=== PATIENT | female | born 1985 | race African-American/Black ===

== ENCOUNTER 2023-01-21 23:25 | Inpatient (IN) ==
[2023-01-22] MEDS ORDERED: HYDROmorphone INJ 1 MG/ML SYRINGE IV STA ×3 (00:31→04:48)
[2023-01-22] MEDS ORDERED: ONDANSETRON INJ 2 MG/ML 2 ML VIAL IV STA (00:31)
[2023-01-22] MEDS ORDERED: SODIUM CHLORIDE 0.9% 1000ML 1,000 ML IV ONE (00:31)
--- NOTE | 2023-01-22 00:34 | Emergency Department Note ---
Impression & Plan Sickle cell crisis, Anemia, Elevated bilirubin ED Provider Note NAME: EDWARD MOREJON AGE: 37 SEX: F : 1985 ARRIVES VIA: Walk-In INFORMANT: Patient ED PROVIDER(S): Mukesh Li DO CHIEF COMPLAINT: Sickle cell crisis HPI: Patient is a 37-year-old female who presents to the ER for sickle cell crisis. She has a past medical history of sickle cell disease. She was admitted last week for 5 days and discharged on . She notes on Sunday she started having pain in her arms and legs. Today she started having right- sided chest pain and belly pain associated with nausea. She took 8 mg of Dilaudid this morning and then 4 mg around 4 PM. She notes she still having severe pain. She denies any fevers, dysuria urgency or frequency. No other exacerbating or remitting factors. PAST MEDICAL HISTORY:See Below PAST SURGICAL HISTORY:See Below FAMILY HISTORY:See Below SOCIAL HISTORY:See Below HOME MEDICATIONS:See Below ALLERGIES:See Below VITALS:See Below PHYSICAL EXAMINATION: GENERAL: Sitting up in bed, alert, well appearing, well nourished, no distress, non-toxic EYE EXAM: normal conjunctiva. OROPHARYNX: mucous membranes are moist NECK: supple, no nuchal rigidity, no adenopathy, non-tender LUNGS: Clear to auscultation. Normal chest wall mechanics HEART: no murmurs, S1 normal and S2 normal ABDOMEN: abdomen soft, non-tender, normo-active bowel sounds, no masses, no rebound or guarding. BACK: Back is symmetrical on inspection and there is no deformity, no midline tenderness, no CVA tenderness. UPPER EXTREMITIES: upper extremities are grossly normal. LOWER EXTREMITIES: No pitting edema. NEURO EXAM: Normal sensorium, cranial nerves II-XII grossly intact, normal spe ech, no gross weakness of arms, no gross weakness of legs. No drift. Finger to nose intact. Gross sensation intact. MEDICAL DECISION MAKING: Patient is a 37-year-old female who presents to the ER with known sickle cell disease for extremity pain, chest pain and abdominal pain. Hypoxic at 88% on room air upon arrival. IV was difficult to obtain and was delayed secondary to difficult stick. Labs show no significant leukocytosis. Mild anemia at 7.3 which the patient notes is fairly close to her baseline. Reticulocyte was about 21%. BMP was fairly unremarkable. T. bili at 4. LFTs and alk phos was mildly elevated with an alk phos of 307. Troponin was negative. Lipase unremarkable. UA was clean. COVID was negative. Patient was given initially 0.5 mg of Dilaudid followed by 25 mg of Benadryl. She was upset with a small dose however informed her that with her being hypoxic upon arrival with a pulse ox of 88% on room air and I did not want to sedate her too much. Shortly after that dose patient tolerated well and she was given 1.5 mg of Dilaudid. This was followed by another 2 mg of Dilaudid for pain. I reviewed the chest CT in question infiltrate and consequently ordered cefepime. There is a delay in the read secondary to stat rad. It eventually was read by stat read as there is no infiltrates on the chest. Did discuss with Dr. Burrell for admission and he requested speaking with hematology oncology's. I spoke with Dr. Fontenot and she agreed with admission. Triage Nursing notes reviewed. Limited review of prior medical records performed Vital Signs: reviewed and remarkable for hypoxic Differential diagnosis: Differential diagnoses includes but is not limited to pneumonia, bronchitis, COPD/Asthma exacerbation, pneumothorax, pulmonary embolism, congestive heart failure, acute coronary syndrome ER treatment provided: See below Diagnostics interpreted by me include EKG and cardiac monitoring as listed below: -Cardiac Monitoring: An order was placed for continuous cardiac monitoring. The monitor shows a rate of 110 with sinus rhythm. -EC -Laboratory studies:Interpreted by me as stated above in MDM and shown below. Imaging studies: Xrays: As interpreted by me: Portable AP upright 1 view of the chest shows no focal infiltrate CTs show: CT of the chest and abdomen pelvis showed no acute pathology Consultation(s): As described in MDM Procedures:none Critical Care: I have personally spent 32 minutes of critical care time in the direct management of this patient. This includes bedside care, interpretation of diagnostic studies, and testing, discussion with consultants, patient, and family members, and other required patient management activities. This 32 minutes is in excess of all separately billable procedures. Past Med/Surg History Social History Smoking Status: Never smoker Preferred Language: Estonian Feels Safe at Home: Yes Allergies Allergies Allergy/AdvReac Type Severity Reaction Status Date / Time morphine AdvReac Hives Verified 01/22/23 04:42 Home Meds Home Medications Medication Instructions Recorded Confirmed celecoxib 200 mg capsule (Celebrex) 200 mg PO BID 01/22/23 01/22/23 duloxetine 20 mg capsule,delayed 40 mg PO 1XD 01/22/23 01/22/23 release hydromorphone 4 mg tablet 4 mg PO Q4 PRN Pain, Severe 01/22/23 01/22/23 morphine 15 mg tablet,extended 15 mg PO 1XD PRN Severe Pain 01/22/23 01/22/23 release (Scale Score 7-10) morphine 30 mg tablet,extended 30 mg PO 1XD PRN Severe Pain 01/22/23 01/22/23 release (Scale Score 7-10) Results & Data (ED) Vital Signs Vital Signs - 24 hr 01/21/23 23:34 01/21/23 23:26 01/21/23 23:44 Temperature 36.5 C Temperature Source Temporal Artery Scan Pulse Rate 110 H 112 H Pulse Rate [Apical] 116 H Pulse Rate from SpO2 Sensor Pulse Rhythm Respiratory Rate 20 20 Respiratory Effort / Characteristics Non-Labored Non-Labored Spontaneous Respiratory Depth Normal Normal Blood Pressure 123/77 Blood Pressure [Right Arm] 125/77 Blood Pressure Mean 92 Blood Pressure Mean [Right Arm] 93 Pulse Oximetry 95 91 Oxygen Delivery Method Room Air Room Air Oxygen Flow Rate Sepsis Recent Fever Within 48 Hours No Sepsis New/Unexplained Change in Mental Status No Sepsis Action Taken by Nursing No Action Required Oxygen Flow Rate - Titration Pulse Oximetry Post Tiitration 01/21/23 23:53 01/22/23 00:22 01/21/23 23:44 Temperature Temperature Source Pulse Rate 105 H 113 H Pulse Rate [Apical] Pulse Rate from SpO2 Sensor 112 H Pulse Rhythm Regular Respiratory Rate 20 16 Respiratory Effort / Characteristics Respiratory Depth Blood Pressure Blood Pressure [Right Arm] Blood Pressure Mean Blood Pressure Mean [Right Arm] Pulse Oximetry 88 L 96 91 Oxygen Delivery Method Room Air Nasal Cannula Nasal Cannula Oxygen Flow Rate 0 2 Sepsis Recent Fever Within 48 Hours Sepsis New/Unexplained Change in Mental Status Sepsis Action Taken by Nursing Oxygen Flow Rate - Titration 2 Pulse Oximetry Post Tiitration 97 01/21/23 23:50 01/22/23 00:00 01/22/23 00:10 Temperature Temperature Source Pulse Rate 111 H 101 H 102 H Pulse Rate [Apical] Pulse Rate from SpO2 Sensor 111 H 102 H 102 H Pulse Rhythm Respiratory Rate 24 21 20 Respiratory Effort / Characteristics Respiratory Depth Blood Pressure Blood Pressure [Right Arm] Blood Pressure Mean Blood Pressure Mean [Right Arm] Pulse Oximetry 89 L 97 97 Oxygen Delivery Method Oxygen Flow Rate Sepsis Recent Fever Within 48 Hours Sepsis New/Unexplained Change in Mental Status Sepsis Action Taken by Nursing Oxygen Flow Rate - Titration Pulse Oximetry Post Tiitration 01/22/23 00:20 01/22/23 00:30 01/22/23 00:40 Temperature Temperature Source Pulse Rate 103 H 105 H 103 H Pulse Rate [Apical] Pulse Rate from SpO2 Sensor 102 H 106 H 103 H Pulse Rhythm Respiratory Rate 22 18 21 Respiratory Effort / Characteristics Respiratory Depth Blood Pressure Blood Pressure [Right Arm] Blood Pressure Mean Blood Pressure Mean [Right Arm] Pulse Oximetry 97 98 98 Oxygen Delivery Method Oxygen Flow Rate Sepsis Recent Fever Within 48 Hours Sepsis New/Unexplained Change in Mental Status Sepsis Action Taken by Nursing Oxygen Flow Rate - Titration Pulse Oximetry Post Tiitration 01/22/23 00:50 01/22/23 01:00 01/22/23 01:10 Temperature Temperature Source Pulse Rate 104 H 106 H 107 H Pulse Rate [Apical] Pulse Rate from SpO2 Sensor 104 H 106 H 106 H Pulse Rhythm Respiratory Rate 22 21 20 Respiratory Effort / Characteristics Respiratory Depth Blood Pressure Blood Pressure [Right Arm] Blood Pressure Mean Blood Pressure Mean [Right Arm] Pulse Oximetry 100 97 98 Oxygen Delivery Method Oxygen Flow Rate Sepsis Recent Fever Within 48 Hours Sepsis New/Unexplained Change in Mental Status Sepsis Action Taken by Nursing Oxygen Flow Rate - Titration Pulse Oximetry Post Tiitration 01/22/23 01:20 01/22/23 01:30 01/22/23 01:40 Temperature Temperature Source Pulse Rate 107 H 106 H 104 H Pulse Rate [Apical] Pulse Rate from SpO2 Sensor 108 H 107 H 104 H Pulse Rhythm Respiratory Rate 16 16 23 Respiratory Effort / Characteristics Respiratory Depth Blood Pressure Blood Pressure [Right Arm] Blood Pressure Mean Blood Pressure Mean [Right Arm] Pulse Oximetry 97 98 98 Oxygen Delivery Method Oxygen Flow Rate Sepsis Recent Fever Within 48 Hours Sepsis New/Unexplained Change in Mental Status Sepsis Action Taken by Nursing Oxygen Flow Rate - Titration Pulse Oximetry Post Tiitration 01/22/23 01:50 01/22/23 02:00 01/22/23 02:10 Temperature Temperature Source Pulse Rate 106 H 110 H 109 H Pulse Rate [Apical] Pulse Rate from SpO2 Sensor 106 H 110 H 108 H Pulse Rhythm Respiratory Rate 20 17 19 Respiratory Effort / Characteristics Respiratory Depth Blood Pressure Blood Pressure [Right Arm] Blood Pressure Mean Blood Pressure Mean [Right Arm] Pulse Oximetry 99 98 98 Oxygen Delivery Method Oxygen Flow Rate Sepsis Recent Fever Within 48 Hours Sepsis New/Unexplained Change in Mental Status Sepsis Action Taken by Nursing Oxygen Flow Rate - Titration Pulse Oximetry Post Tiitration 01/22/23 02:30 01/22/23 02:40 01/22/23 02:50 Temperature Temperature Source Pulse Rate 110 H 104 H 106 H Pulse Rate [Apical] Pulse Rate from SpO2 Sensor 104 H 106 H Pulse Rhythm Respiratory Rate 25 H 21 22 Respiratory Effort / Characteristics Respiratory Depth Blood Pressure Blood Pressure [Right Arm] Blood Pressure Mean Blood Pressure Mean [Right Arm] Pulse Oximetry 97 98 Oxygen Delivery Method Oxygen Flow Rate Sepsis Recent Fever Within 48 Hours Sepsis New/Unexplained Change in Mental Status Sepsis Action Taken by Nursing Oxygen Flow Rate - Titration Pulse Oximetry Post Tiitration 01/22/23 03:00 01/22/23 03:01 01/22/23 03:10 Temperature Temperature Source Pulse Rate 108 H 106 H 103 H Pulse Rate [Apical] Pulse Rate from SpO2 Sensor 108 H 106 H 103 H Pulse Rhythm Respiratory Rate 15 21 20 Respiratory Effort / Characteristics Respiratory Depth Blood Pressure 114/82 Blood Pressure [Right Arm] Blood Pressure Mean 92 Blood Pressure Mean [Right Arm] Pulse Oximetry 98 97 97 Oxygen Delivery Method Oxygen Flow Rate Sepsis Recent Fever Within 48 Hours Sepsis New/Unexplained Change in Mental Status Sepsis Action Taken by Nursing Oxygen Flow Rate - Titration Pulse Oximetry Post Tiitration 01/22/23 03:20 01/22/23 03:30 01/22/23 03:40 Temperature Temperature Source Pulse Rate 103 H 108 H 105 H Pulse Rate [Apical] Pulse Rate from SpO2 Sensor 103 H 109 H 105 H Pulse Rhythm Respiratory Rate 14 16 19 Respiratory Effort / Characteristics Respiratory Depth Blood Pressure 139/96 Blood Pressure [Right Arm] Blood Pressure Mean 110 Blood Pressure Mean [Right Arm] Pulse Oximetry 98 98 97 Oxygen Delivery Method Oxygen Flow Rate Sepsis Recent Fever Within 48 Hours Sepsis New/Unexplained Change in Mental Status Sepsis Action Taken by Nursing Oxygen Flow Rate - Titration Pulse Oximetry Post Tiitration 01/22/23 03:54 01/22/23 03:50 01/22/23 04:00 Temperature Temperature Source Pulse Rate 109 H 103 H 102 H Pulse Rate [Apical] Pulse Rate from SpO2 Sensor 104 H 102 H Pulse Rhythm Respiratory Rate 16 17 Respiratory Effort / Characteristics Respiratory Depth Blood Pressure 119/75 Blood Pressure [Right Arm] Blood Pressure Mean 89 Blood Pressure Mean [Right Arm] Pulse Oximetry 96 96 Oxygen Delivery Method Oxygen Flow Rate Sepsis Recent Fever Within 48 Hours Sepsis New/Unexplained Change in Mental Status Sepsis Action Taken by Nursing Oxygen Flow Rate - Titration Pulse Oximetry Post Tiitration 01/22/23 04:10 01/22/23 04:20 01/22/23 04:30 Temperature Temperature Source Pulse Rate 103 H 100 H 103 H Pulse Rate [Apical] Pulse Rate from SpO2 Sensor 103 H 100 H 104 H Pulse Rhythm Respiratory Rate 17 17 16 Respiratory Effort / Characteristics Respiratory Depth Blood Pressure 114/71 Blood Pressure [Right Arm] Blood Pressure Mean 85 Blood Pressure Mean [Right Arm] Pulse Oximetry 97 97 97 Oxygen Delivery Method Oxygen Flow Rate Sepsis Recent Fever Within 48 Hours Sepsis New/Unexplained Change in Mental Status Sepsis Action Taken by Nursing Oxygen Flow Rate - Titration Pulse Oximetry Post Tiitration 01/22/23 04:40 01/22/23 04:50 01/22/23 05:00 Temperature Temperature Source Pulse Rate 107 H 102 H 103 H Pulse Rate [Apical] Pulse Rate from SpO2 Sensor 107 H 102 H 103 H Pulse Rhythm Respiratory Rate 18 15 21 Respiratory Effort / Characteristics Respiratory Depth Blood Pressure 113/76 Blood Pressure [Right Arm] Blood Pressure Mean 88 Blood Pressure Mean [Right Arm] Pulse Oximetry 97 97 98 Oxygen Delivery Method Oxygen Flow Rate Sepsis Recent Fever Within 48 Hours Sepsis New/Unexplained Change in Mental Status Sepsis Action Taken by Nursing Oxygen Flow Rate - Titration Pulse Oximetry Post Tiitration Laboratory Data 01/22/23 01:34 01/22/23 01:34 Lab Results 01/22/23 01/22/23 01/22/23 Range/Units 00:55 01:34 01:34 WBC 7.53 (4.8-10.8) K/ul RBC 2.50 L (4.20-5.40) M/uL Hgb 7.3 L (12.0-16.0) g/dl Hct 20.9 L* (37.0-47.0) % MCV 83.6 (80.0-100.0) fL MCH 29.2 (25.0-34.0) pg MCHC 34.9 (32.0-36.0) g/dL RDW Std Deviation 62.4 H (36.4-46.3) fL RDW Coeff of Karel 22.8 H (11.5-14.5) % Plt Count 167 (130-400) K/uL MPV 11.5 (9.4-12.4) fL Immature Gran % (Auto) 1.1 % Neut % (Auto) 54.6 % Lymph % (Auto) 23.8 % [place] % (Auto) 13.1 % Eos % (Auto) 6.9 % Baso % (Auto) 0.5 % Reticulocyte % (Auto) 21.0 H (0.5-2.0) % Neut # (Auto) 4.11 (1.40-6.50) K/uL Lymph # (Auto) 1.79 (1.2-3.4) K/uL [place] # (Auto) 0.99 H (0.11-0.59) K/uL Eos # (Auto) 0.52 H (0-0.50) K/uL Baso # (Auto) 0.04 (0-0.2) K/uL Reticulocyte # 0.75 H (0.02-0.10) 10^6/uL Immature Gran # (Auto) 0.08 (0.01-0.20) K/uL Absolute Nucleated RBC 2.44 H (0-0.12) K/uL Nucleated RBC % (auto) 32.4 % Polychromasia 2+ Anisocytosis Present Sickle Cells 2+ Target Cells 1+ Sodium 135 L (136-145) mmol/L Potassium 3.9 (3.5-5.1) mmol/L Chloride 105 (98-107) mmol/L Carbon Dioxide 27 (21-32) mmol/L Anion Gap 3 (3-11) BUN 6 (6-23) mg/dl Creatinine 0.44 L (0.6-1.2) mg/dl Est Cr Clr Drug Dosing 175.3 ml/min Est GFR ( Amer) > 150.0 ml/min Est GFR (Non-Af Amer) 129.9 ml/min BUN/Creatinine Ratio 13.6 (10-20) Glucose 105 H (70-99(Fasting)) mg/dl Calcium 8.9 (8.6-10.3) mg/dl Magnesium 2.0 (1.7-2.4) mg/dl Total Bilirubin 4.1 H (0.2-1.0) mg/dl AST 77 H (13-39) U/L ALT 30 (7-52) U/L Alkaline Phosphatase 307 H (34-104) U/L Troponin I High Sens 7.4 (0-14) pg/ml Total Protein 6.8 (6.0-8.3) gm/dl Albumin 3.8 (3.4-5.0) gm/dl Globulin 3.0 (2.5-4.0) gm/dl Albumin/Globulin Ratio 1.3 (0.9-2) Lipase 20 (11-82) U/L Urine Color Urine Appearance (Clear) Urine pH (4.5-7.5) Ur Specific [place] (1.000-1.030) Urine Protein (Negative) Urine Glucose (UA) (Negative) Urine Ketones (Negative) Urine Blood (Negative) Urine Nitrite (Negative) Urine Bilirubin (Negative) Urine Urobilinogen (Negative) Ur Leukocyte Esterase (Negative) Urine WBC (Auto) (0-5) /hpf Urine RBC (Auto) (0-4) /hpf U Hyaline Cast (Auto) (0-5) /lpf U Epithel Cells (Auto) (0-5) /lpf Urine Bacteria (Auto) (Negative) SARS-CoV-2, RNA, NAAT NEGATIVE (NEGATIVE) 01/22/23 Range/Units 02:40 WBC (4.8-10.8) K/ul RBC (4.20-5.40) M/uL Hgb (12.0-16.0) g/dl Hct (37.0-47.0) % MCV (80.0-100.0) fL MCH (25.0-34.0) pg MCHC (32.0-36.0) g/dL RDW Std Deviation (36.4-46.3) fL RDW Coeff of Karel (11.5-14.5) % Plt Count (130-400) K/uL MPV (9.4-12.4) fL Immature Gran % (Auto) % Neut % (Auto) % Lymph % (Auto) % [place] % (Auto) % Eos % (Auto) % Baso % (Auto) % Reticulocyte % (Auto) (0.5-2.0) % Neut # (Auto) (1.40-6.50) K/uL Lymph # (Auto) (1.2-3.4) K/uL [place] # (Auto) (0.11-0.59) K/uL Eos # (Auto) (0-0.50) K/uL Baso # (Auto) (0-0.2) K/uL Reticulocyte # (0.02-0.10) 10^6/uL Immature Gran # (Auto) (0.01-0.20) K/uL Absolute Nucleated RBC (0-0.12) K/uL Nucleated RBC % (auto) % Polychromasia Anisocytosis Sickle Cells Target Cells Sodium (136-145) mmol/L Potassium (3.5-5.1) mmol/L Chloride (98-107) mmol/L Carbon Dioxide (21-32) mmol/L Anion Gap (3-11) BUN (6-23) mg/dl Creatinine (0.6-1.2) mg/dl Est Cr Clr Drug Dosing ml/min Est GFR ( Amer) ml/min Est GFR (Non-Af Amer) ml/min BUN/Creatinine Ratio (10-20) Glucose (70-99(Fasting)) mg/dl Calcium (8.6-10.3) mg/dl Magnesium (1.7-2.4) mg/dl Total Bilirubin (0.2-1.0) mg/dl AST (13-39) U/L ALT (7-52) U/L Alkaline Phosphatase (34-104) U/L Troponin I High Sens (0-14) pg/ml Total Protein (6.0-8.3) gm/dl Albumin (3.4-5.0) gm/dl Globulin (2.5-4.0) gm/dl Albumin/Globulin Ratio (0.9-2) Lipase (11-82) U/L Urine Color Yellow Urine Appearance Clear (Clear) Urine pH 7.0 (4.5-7.5) Ur Specific [place] 1.011 (1.000-1.030) Urine Protein Negative (Negative) Urine Glucose (UA) Negative (Negative) Urine Ketones Negative (Negative) Urine Blood Trace H (Negative) Urine Nitrite Negative (Negative) Urine Bilirubin Negative (Negative) Urine Urobilinogen Positive H (Negative) Ur Leukocyte Esterase Negative (Negative) Urine WBC (Auto) 1-5 (0-5) /hpf Urine RBC (Auto) 0-4 (0-4) /hpf U Hyaline Cast (Auto) 0 (0-5) /lpf U Epithel Cells (Auto) 10-20 H (0-5) /lpf Urine Bacteria (Auto) Negative (Negative) SARS-CoV-2, RNA, NAAT (NEGATIVE) Administered Medications Potassium Chloride/Sodium Chloride (Normal Saline W/20 Meq Kcl) 20 meq in 1,000 mls @ 60 mls/hr IV .[id number] STA; Protocol Stop: 01/22/23 20:47 Last Admin: 01/22/23 04:28 Dose: 60 mls/hr Documented By: DUANE Discontinued Medications Diphenhydramine HCl (Diphenhydramine 50 Mg/Ml Vial) 25 mg IV NOW STA Stop: 01/22/23 01:56 Last Admin: 01/22/23 02:02 Dose: 25 mg Documented By: DUANE Hydromorphone HCl (Hydromorphone Inj 1 Mg/Ml Syringe) 1 mg IV NOW STA Stop: 01/22/23 00:32 Last Admin: 01/22/23 02:29 Dose: Not Given Documented By: DUANE Hydromorphone HCl (Hydromorphone Inj 0.5 Mg/0.5 Ml Syr) 0.5 mg IV NOW STA Stop: 01/22/23 01:56 Last Admin: 01/22/23 02:02 Dose: 0.5 mg Documented By: DUANE Hydromorphone HCl (Hydromorphone Inj 1 Mg/Ml Syringe) 1.5 mg IV NOW STA Stop: 01/22/23 02:13 Last Admin: 01/22/23 02:50 Dose: 1.5 mg Documented By: DUANE Hydromorphone HCl (Hydromorphone Inj 2 Mg/Ml Syr/Vial) 2 mg IV NOW STA Stop: 01/22/23 03:18 Last Admin: 01/22/23 03:28 Dose: 2 mg Documented By: DUANE Hydromorphone HCl (Hydromorphone Inj 1 Mg/Ml Syringe) 1 mg IV NOW STA Stop: 01/22/23 04:49 Last Admin: 01/22/23 05:03 Dose: 1 mg Documented By: DUANE Sodium Chloride (Nss 1000ml) 1,000 mls @ 999 mls/hr IV .Q1H1M ONE Stop: 01/22/23 01:31 Last Infusion: 01/22/23 03:35 Dose: 0 mls/hr Documented By: Admin: 01/22/23 02:03 Dose: 999 mls/hr Documented By: DUANE Cefepime HCl (Maxipime) 2,000 mg in 20 mls @ 5 mls/min IV NOW STA; Protocol Stop: 01/22/23 02:59 Last Admin: 01/22/23 03:28 Dose: 5 mls/min Documented By: DUANE Ioversol (Optiray 320 125ml) 125 ml IV ONCE ONE Stop: 01/22/23 02:31 Last Admin: 01/22/23 02:30 Dose: 115 ml Documented By: KIM Morphine Sulfate (Morphine Sulfate 10 Mg/Ml Carp/Vial) 6 mg IV NOW STA Stop: 01/22/23 01:48 Last Admin: 01/22/23 02:29 Dose: Not Given Documented By: DUANE Ondansetron HCl (Ondansetron Inj 2 Mg/Ml 2 Ml Vial) 4 mg IV NOW STA Stop: 01/22/23 00:32 Last Admin: 01/22/23 02:03 Dose: 4 mg Documented By: DUANE Imaging Data Radiologist's Impression: Abdomen/Pelvis CT 01/22/23 00:31 Exam(s): CT ABDOMEN + PELVIS With Contrast IV Amt: 115 ML OPTIRAY 320 EXAM: CT Abdomen and Pelvis With Intravenous Contrast CLINICAL HISTORY: Reason for exam: abd pain. TECHNIQUE: Axial computed tomography images of the abdomen and pelvis with intravenous contrast. CTDI is 18.98 mGy and DLP is 897.45 mGy-cm. Automated exposure control was utilized for the study. A dose lowering technique was utilized adhering to the principles of ALARA. CONTRAST: Patient received 115 ML OPTIRAY 320 of IV contrast COMPARISON: No relevant prior studies available. FINDINGS: Lung bases: Unremarkable. No mass. No consolidation. ABDOMEN: Liver: Unremarkable. No mass. Gallbladder and bile ducts: Previous cholecystectomy. No biliary duct dilation is seen. Pancreas: Unremarkable. No mass. No ductal dilation. Spleen: Unremarkable. No splenomegaly. Adrenals: Unremarkable. No mass. Kidneys and ureters: Unremarkable. No solid mass. No hydronephrosis. Stomach and bowel: Unremarkable. No obstruction. No mucosal thickening. PELVIS: Appendix: The appendix is normal. Bowel loops are nondilated. No acute inflammatory changes are seen involving the bowel. Bladder: Unremarkable. No mass. Reproductive: Unremarkable as visualized. ABDOMEN and PELVIS: Intraperitoneal space: Unremarkable. No free air. No significant fluid collection. Bones/joints: Slightly sclerotic appearance of the skeletal structures with H shaped vertebral bodies characteristic of sickle cell disease. No acute fracture or destructive bone lesion is seen. No dislocation. Soft tissues: Unremarkable. Vasculature: Unremarkable. No abdominal aortic aneurysm. Lymph nodes: Unremarkable. No enlarged lymph nodes. IMPRESSION: The appendix is normal. Bowel loops are nondilated. No acute inflammatory changes are seen involving the bowel. No acute process is seen in the abdomen or pelvis. Electronically signed by: Brady Guevara MD 01/22/23 03:22 AM Chest CTA 01/22/23 00:31 Exam(s): CTA CHEST IV Amt: 115 ML OPTIRAY 320 EXAM: CT Angiography Chest With Intravenous Contrast CLINICAL HISTORY: Reason for exam: PE, hypoxic sickle cell crisis. TECHNIQUE: Axial computed tomographic angiography images of the chest with intravenous contrast. CTDI is 16.32 mGy and DLP is 457.62 mGy-cm. Automated exposure control was utilized for the study. A dose lowering technique was utilized adhering to the principles of ALARA. MIP reconstructed images were created and reviewed. COMPARISON: No relevant prior studies available. FINDINGS: Pulmonary arteries: The pulmonary arterial tree is well opacified with contrast. No pulmonary emboli are identified. Aorta: The thoracic aorta is nondilated. There is no aneurysm or dissection. Lungs: Prominent vascular and interstitial markings in the mid to lower lungs bilaterally without focal consolidation. Pleural space: Unremarkable. No significant effusion. No pneumothorax. Heart: The heart is mildly enlarged. No pericardial effusion is seen. No evidence of RV dysfunction. Bones/joints: There is a slightly sclerotic appearance of the skeletal structures consistent with history of sickle cell disease. No focal bone lesion or fracture is seen. No dislocation. Soft tissues: Unremarkable. Lymph nodes: Unremarkable. No enlarged lymph nodes. IMPRESSION: 1. The pulmonary arterial tree is well opacified with contrast. No pulmonary emboli are identified. 2. The thoracic aorta is nondilated. There is no aneurysm or dissection. 3. Prominent vascular and interstitial markings in the mid to lower lungs bilaterally without focal consolidation. Electronically signed by: Brady Guevara MD 01/22/23 03:18 AM Discharge Plan Visit Data Chief Complaint: Illness Stated Complaint: SICKLE CELL CRISIS ED Provider: Mukesh Li Discharge Problem: Sickle cell crisis, Anemia, Elevated bilirubin Forms Stand Alone Forms: My [facility] Prescriptions Prescriptions: No Action celecoxib [Celebrex] 200 mg capsule 200 mg PO BID morphine 30 mg tablet extended release 30 mg PO 1XD PRN (Reason: Severe Pain (Scale Score 7-10)) morphine 15 mg tablet extended release 15 mg PO 1XD PRN (Reason: Severe Pain (Scale Score 7-10)) hydromorphone 4 mg tablet 4 mg PO Q4 PRN (Reason: Pain, Severe) duloxetine 20 mg capsule,delayed release(DR/EC) 40 mg PO 1XD Referrals Referrals: PCP,NO [Primary Care Provider] -
[2023-01-22] MEDS ORDERED: MoRPHine SULFATE 10 MG/ML CARP/VIAL IV STA (01:47)
[2023-01-22 01:52] LABS: Hematocrit (blood only) 20.9 % (37.0-47.0); Hemoglobin 7.3 g/dl (12.0-16.0); Mean Corpuscular Hemoglobin 29.2 pg (25.0-34.0); Mean Corpuscular Hgb Conc 34.9 g/dL (32.0-36.0); Mean Corpuscular Volume 83.6 fL (80.0-100.0); Mean Platelet Volume 11.5 fL (9.4-12.4); Nucleated RBC # (auto) 2.44 K/uL (0-0.12); Nucleated RBC % (auto) 32.4 %; Platelet Count 167 K/uL (130-400); RDW Coefficient of Variation 22.8 % (11.5-14.5); RDW Standard Deviation 62.4 fL (36.4-46.3); White Blood Count 7.53 K/ul (4.8-10.8)
[2023-01-22] MEDS ORDERED: diphenhydrAMINE 50 MG/ML VIAL IV STA (01:55)
[2023-01-22] MEDS ORDERED: HYDROmorphone INJ 0.5 MG/0.5 ML SYR IV STA (01:55)
[2023-01-22 02:03] LABS: Alanine Aminotransferase 30 U/L (7-52); Albumin Globulin Ratio 1.3 (0.9-2); Albumin Level 3.8 gm/dl (3.4-5.0); Alkaline Phosphatase 307 U/L (34-104); Anion Gap 3 (3-11); Aspartate Aminotransferase 77 U/L (13-39); BUN Creatinine Ratio 13.6 (10-20); Bilirubin,Total 4.1 mg/dl (0.2-1.0); Blood Urea Nitrogen 6 mg/dl (6-23); Calcium 8.9 mg/dl (8.6-10.3); Carbon Dioxide 27 mmol/L (21-32); Chloride 105 mmol/L (98-107); Creatinine Clr Calc Pharmacy 175.3 ml/min; Est GFR (African American) > 150.0 ml/min; Est GFR (Non-African American) 129.9 ml/min; Glucose 105 mg/dl (70-99(Fasting)); Lipase 20 U/L (11-82); Potassium 3.9 mmol/L (3.5-5.1); Sodium 135 mmol/L (136-145); Total Protein 6.8 gm/dl (6.0-8.3)
[2023-01-22 02:10] LABS: Troponin I High Sensitivity 7.4 pg/ml (0-14)
[2023-01-22 02:25] LABS: Basophils # (auto) 0.04 K/uL (0-0.2); Basophils % (auto) 0.5 %; Eosinophils # (auto) 0.52 K/uL (0-0.50); Eosinophils % (auto) 6.9 %; Immature Granulocytes # (auto) 0.08 K/uL (0.01-0.20); Immature Granulocytes % (auto) 1.1 %; Lymphocytes # (auto) 1.79 K/uL (1.2-3.4); Lymphocytes % (auto) 23.8 %; Monocytes # (auto) 0.99 K/uL (0.11-0.59); Monocytes % (auto) 13.1 %; Neutrophils # (auto) 4.11 K/uL (1.40-6.50); Neutrophils % (auto) 54.6 %; Reticulocytes # 0.75 10^6/uL (0.02-0.10)
[2023-01-22 02:28] LABS: Anisocytosis Present; Polychromasia 2+; Sickle Cells 2+; Target Cells 1+
[2023-01-22] MEDS ORDERED: OPTIRAY 320 125ml IV ONE (02:30)
[2023-01-22 02:51] LABS: Appearance Urine Clear (Clear); Bacteria Urine Automated Negative (Negative); Bilirubin Urine Negative (Negative); Blood Urine Trace (Negative); Cast Urine Automated 0 /lpf (0-5); Color Urine Yellow; Glucose Urine UA Negative (Negative); Ketones Urine Negative (Negative); Leukocyte Esterase Urine Negative (Negative); Nitrite Urine Negative (Negative); Protein Urine Negative (Negative); RBC Urine Automated 0-4 /hpf (0-4); Specific Gravity Urine 1.011 (1.000-1.030); Urobilinogen Urine Positive (Negative)
[2023-01-22] MEDS ORDERED: CEFEPIME 2,000 MG/20 ML VIAL IV STA (02:56)
[2023-01-22] MEDS ORDERED: HYDROmorphone INJ 2 MG/ML SYR/VIAL IV STA (03:17)
--- NOTE | 2023-01-22 03:18 | CT Scan Report ---
Exam(s): CTA CHEST IV Amt: 115 ML OPTIRAY 320 EXAM: CT Angiography Chest With Intravenous Contrast CLINICAL HISTORY: Reason for exam: PE, hypoxic sickle cell crisis. TECHNIQUE: Axial computed tomographic angiography images of the chest with intravenous contrast. CTDI is 16.32 mGy and DLP is 457.62 mGy-cm. Automated exposure control was utilized for the study. A dose lowering technique was utilized adhering to the principles of ALARA. MIP reconstructed images were created and reviewed. COMPARISON: No relevant prior studies available. FINDINGS: Pulmonary arteries: The pulmonary arterial tree is well opacified with contrast. No pulmonary emboli are identified. Aorta: The thoracic aorta is nondilated. There is no aneurysm or dissection. Lungs: Prominent vascular and interstitial markings in the mid to lower lungs bilaterally without focal consolidation. Pleural space: Unremarkable. No significant effusion. No pneumothorax. Heart: The heart is mildly enlarged. No pericardial effusion is seen. No evidence of RV dysfunction. Bones/joints: There is a slightly sclerotic appearance of the skeletal structures consistent with history of sickle cell disease. No focal bone lesion or fracture is seen. No dislocation. Soft tissues: Unremarkable. Lymph nodes: Unremarkable. No enlarged lymph nodes. IMPRESSION: 1. The pulmonary arterial tree is well opacified with contrast. No pulmonary emboli are identified. 2. The thoracic aorta is nondilated. There is no aneurysm or dissection. 3. Prominent vascular and interstitial markings in the mid to lower lungs bilaterally without focal consolidation. Electronically signed by: Brady Guevara MD 01/22/23 03:18 AM
--- NOTE | 2023-01-22 03:22 | CT Scan Report ---
Exam(s): CT ABDOMEN + PELVIS With Contrast IV Amt: 115 ML OPTIRAY 320 EXAM: CT Abdomen and Pelvis With Intravenous Contrast CLINICAL HISTORY: Reason for exam: abd pain. TECHNIQUE: Axial computed tomography images of the abdomen and pelvis with intravenous contrast. CTDI is 18.98 mGy and DLP is 897.45 mGy-cm. Automated exposure control was utilized for the study. A dose lowering technique was utilized adhering to the principles of ALARA. CONTRAST: Patient received 115 ML OPTIRAY 320 of IV contrast COMPARISON: No relevant prior studies available. FINDINGS: Lung bases: Unremarkable. No mass. No consolidation. ABDOMEN: Liver: Unremarkable. No mass. Gallbladder and bile ducts: Previous cholecystectomy. No biliary duct dilation is seen. Pancreas: Unremarkable. No mass. No ductal dilation. Spleen: Unremarkable. No splenomegaly. Adrenals: Unremarkable. No mass. Kidneys and ureters: Unremarkable. No solid mass. No hydronephrosis. Stomach and bowel: Unremarkable. No obstruction. No mucosal thickening. PELVIS: Appendix: The appendix is normal. Bowel loops are nondilated. No acute inflammatory changes are seen involving the bowel. Bladder: Unremarkable. No mass. Reproductive: Unremarkable as visualized. ABDOMEN and PELVIS: Intraperitoneal space: Unremarkable. No free air. No significant fluid collection. Bones/joints: Slightly sclerotic appearance of the skeletal structures with H shaped vertebral bodies characteristic of sickle cell disease. No acute fracture or destructive bone lesion is seen. No dislocation. Soft tissues: Unremarkable. Vasculature: Unremarkable. No abdominal aortic aneurysm. Lymph nodes: Unremarkable. No enlarged lymph nodes. IMPRESSION: The appendix is normal. Bowel loops are nondilated. No acute inflammatory changes are seen involving the bowel. No acute process is seen in the abdomen or pelvis. Electronically signed by: Brady Guevara MD 01/22/23 03:22 AM
[2023-01-22] MEDS ORDERED: NSS + 20MEQ KCL 20 MEQ/1,000 ML BAG IV STA (04:08)
[2023-01-22] MEDS ORDERED: HYDROmorphone INJ 1 MG/ML SYRINGE IV PRN ×3 (04:16→17:15)
[2023-01-22] MEDS ORDERED: PROMETHAZINE HCL 12.5 MG in SODIUM CHLORIDE 0.9% 50 ML IV PRN (04:17)
[2023-01-22] MEDS ORDERED: oxyCODONE HCL IR 5 MG TAB (IMMEDIATE RELEASE) PO PRN ×2 (04:17→15:37)
[2023-01-22] MEDS ORDERED: ACETAMINOPHEN 325 MG TAB PO PRN (04:17)
[2023-01-22] MEDS ORDERED: Patient's ALLERGY Info needs ENTERED STA (04:35)
[2023-01-22] MEDS ORDERED: SODIUM CHLORIDE 0.9% 250 ML IV PRN (05:17)
[2023-01-22] MEDS ORDERED: hydrOXYzine HCl 10 MG TAB PO PRN (05:21)
--- NOTE | 2023-01-22 05:22 | History & Physical Report ---
Date of Service January 22, 2023 Assessment & Plan (1) Sickle cell crisis: Plan: recurrent episodes Patient non-toxic. Acute on chronic anemia Hemoglobin 7 following recent confinement in [facility] chronic pain on narcotics Medical telemetry IVF, analgesia Hematology consult Re: Sickle cell crisis DVT prophylaxis. Lovenox subcu Full code Case discussed with Dr. Raymond of hematology. She recommends transfusion of 1 unit packed RBC and repeating chest x-ray later today to definitively rule out concomitant acute chest syndrome. Text document was generated using [employer] voice recognition software. It may contain grammatical or spelling errors. Kindly contact undersigned for clarification of any documentation item in question. History of Present Illness Chief Complaint: Sickle cell crisis Primary Care Provider: Dr. Javed (PCP from [place], [place]) Dr. Robertson (biomedical repair technician for [place]) History obtained from patient and records. Medical history significant for sickle cell disease, chronic pain on narcotics, chronic anemia (baseline hemoglobin 9). Patient is a resident of [place], [place] who drove to [facility] with family 3 days ago to attend her aunts birthday celebration. Patient has been having frequent sickle cell crises (almost monthly) since giving last year. Patient confined last week at a local hospital in [place]. Hemoglobin around 7 on discharge as per patient. Patient was not able to get her monthly exchange transfusion to date. Increased pain in the legs and arms with mild chest/abdominal discomfort for the last few days. Episode reminiscent of sickle cell crisis as per patient different from acute chest syndrome she has not had years. Patient denies headache, cough symptoms. IV cefepime administered at the ER. 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 [employer] Allergies Allergy/AdvReac Type Severity Reaction Status Date / Time morphine AdvReac Hives Verified 01/22/23 06:06 (with IV) Home Medications Medication Instructions Recorded Confirmed Type celecoxib 200 mg capsule (Celebrex) 200 mg PO BID PRN Pain 01/22/23 01/22/23 History duloxetine 20 mg capsule,delayed 40 mg PO DAILY 01/22/23 01/22/23 History release folic acid 1 mg tablet 1 mg PO DAILY 01/22/23 01/22/23 History hydromorphone 4 mg tablet 8 mg PO Q4 PRN Pain, Severe 01/22/23 01/22/23 History hydroxyurea 500 mg capsule 500 mg PO DAILY 01/22/23 01/22/23 History morphine 15 mg tablet,extended 15 mg PO DAILY 01/22/23 01/22/23 History release morphine 30 mg tablet,extended 30 mg PO HS 01/22/23 01/22/23 History release ondansetron HCl 8 mg tablet 8 mg PO Q8H PRN Nausea 01/22/23 01/22/23 History Past Med/Surg History Social History Smoking Status: Never smoker Preferred Language: Finnish Feels Safe at Home: Yes Review of Systems Review of Systems: As per HPI, all other systems reviewed and negative Physical Exam Physical Exam: GENERAL: Comfortable, no respiratory distress SKIN: Pallor, warm HEENT: Pale palpebral conjunctivae, no ptosis, dry buccal mucosa NECK : Supple, no tenderness CHEST : CTA, no tenderness HEART : Tachycardic, no obvious murmurs ABDOMEN: Some distention, nontender EXTREMITIES : Minimal LE swelling, no LE tenderness, no other conspicuous deformities noted NEUROLOGIC : Coherent, no facial asymmetry, no other gross focality Results & Data Results & Data Vital Signs (Past 12 Hours) Vital Signs Temp Pulse Pulse Resp BP BP Pulse Ox 01/22/23 05:00 103 H 21 113/76 98 01/22/23 04:50 102 H 15 97 01/22/23 04:40 107 H 18 97 01/22/23 04:30 103 H 16 114/71 97 01/22/23 04:20 100 H 17 97 01/22/23 04:10 103 H 17 97 01/22/23 04:00 102 H 17 119/75 96 01/22/23 03:50 103 H 16 96 01/22/23 03:54 109 H 01/22/23 03:40 105 H 19 97 01/22/23 03:30 108 H 16 139/96 98 01/22/23 03:20 103 H 14 98 01/22/23 03:10 103 H 20 97 01/22/23 03:01 106 H 21 114/82 97 01/22/23 03:00 108 H 15 98 01/22/23 02:50 106 H 22 98 01/22/23 02:40 104 H 21 97 01/22/23 02:30 110 H 25 H 01/22/23 02:10 109 H 19 98 01/22/23 02:00 110 H 17 98 01/22/23 01:50 106 H 20 99 01/22/23 01:40 104 H 23 98 01/22/23 01:30 106 H 16 98 01/22/23 01:20 107 H 16 97 01/22/23 01:10 107 H 20 98 01/22/23 01:00 106 H 21 97 01/22/23 00:50 104 H 22 100 01/22/23 00:40 103 H 21 98 01/22/23 00:30 105 H 18 98 01/22/23 00:20 103 H 22 97 01/22/23 00:10 102 H 20 97 01/22/23 00:00 101 H 21 97 01/21/23 23:50 111 H 24 89 L 01/21/23 23:44 113 H 16 91 01/22/23 00:22 105 H 20 96 01/21/23 23:53 88 L 01/21/23 23:44 112 H 01/21/23 23:26 116 H 20 125/77 91 01/21/23 23:34 36.5 C 110 H 20 123/77 95 O2 Del Method O2 Flow Rate 01/22/23 05:00 01/22/23 04:50 01/22/23 04:40 01/22/23 04:30 01/22/23 04:20 01/22/23 04:10 01/22/23 04:00 01/22/23 03:50 01/22/23 03:54 01/22/23 03:40 01/22/23 03:30 01/22/23 03:20 01/22/23 03:10 01/22/23 03:01 01/22/23 03:00 01/22/23 02:50 01/22/23 02:40 01/22/23 02:30 01/22/23 02:10 01/22/23 02:00 01/22/23 01:50 01/22/23 01:40 01/22/23 01:30 01/22/23 01:20 01/22/23 01:10 01/22/23 01:00 01/22/23 00:50 01/22/23 00:40 01/22/23 00:30 01/22/23 00:20 01/22/23 00:10 01/22/23 00:00 01/21/23 23:50 01/21/23 23:44 01/22/23 00:22 Nasal Cannula 2 01/21/23 23:53 Room Air, Nasal Cannula 0 01/21/23 23:44 01/21/23 23:26 Room Air 01/21/23 23:34 Room Air Laboratory Results Laboratory Results WBC 7.53 K/ul (4.8-10.8) 01/22/23 01:34 RBC 2.50 M/uL (4.20-5.40) L 01/22/23 01:34 Hgb 7.3 g/dl (12.0-16.0) L 01/22/23 01:34 Hct 20.9 % (37.0-47.0) L* 01/22/23 01:34 MCV 83.6 fL (80.0-100.0) 01/22/23 01:34 MCH 29.2 pg (25.0-34.0) 01/22/23 01:34 MCHC 34.9 g/dL (32.0-36.0) 01/22/23 01:34 RDW Std Deviation 62.4 fL (36.4-46.3) H 01/22/23 01:34 RDW Coeff of Karel 22.8 % (11.5-14.5) H 01/22/23 01:34 Plt Count 167 K/uL (130-400) 01/22/23 01:34 MPV 11.5 fL (9.4-12.4) 01/22/23 01:34 Immature Gran % (Auto) 1.1 % 01/22/23 01:34 Neut % (Auto) 54.6 % 01/22/23 01:34 Lymph % (Auto) 23.8 % 01/22/23 01:34 [place] % (Auto) 13.1 % 01/22/23 01:34 Eos % (Auto) 6.9 % 01/22/23 01:34 Baso % (Auto) 0.5 % 01/22/23 01:34 Reticulocyte % (Auto) 21.0 % (0.5-2.0) H 01/22/23 01:34 Neut # (Auto) 4.11 K/uL (1.40-6.50) 01/22/23 01:34 Lymph # (Auto) 1.79 K/uL (1.2-3.4) 01/22/23 01:34 [place] # (Auto) 0.99 K/uL (0.11-0.59) H 01/22/23 01:34 Eos # (Auto) 0.52 K/uL (0-0.50) H 01/22/23 01:34 Baso # (Auto) 0.04 K/uL (0-0.2) 01/22/23 01:34 Reticulocyte # 0.75 10^6/uL (0.02-0.10) H 01/22/23 01:34 Immature Gran # (Auto) 0.08 K/uL (0.01-0.20) 01/22/23 01:34 Absolute Nucleated RBC 2.44 K/uL (0-0.12) H 01/22/23 01:34 Nucleated RBC % (auto) 32.4 % 01/22/23 01:34 Polychromasia 2+ 01/22/23 01:34 Anisocytosis Present 01/22/23 01:34 Sickle Cells 2+ 01/22/23 01:34 Target Cells 1+ 01/22/23 01:34 Sodium 135 mmol/L (136-145) L 01/22/23 01:34 Potassium 3.9 mmol/L (3.5-5.1) 01/22/23 01:34 Chloride 105 mmol/L (98-107) 01/22/23 01:34 Carbon Dioxide 27 mmol/L (21-32) 01/22/23 01:34 Anion Gap 3 (3-11) 01/22/23 01:34 BUN 6 mg/dl (6-23) 01/22/23 01:34 Creatinine 0.44 mg/dl (0.6-1.2) L 01/22/23 01:34 Est Cr Clr Drug Dosing 175.3 ml/min 01/22/23 01:34 Est GFR ( Amer) > 150.0 ml/min 01/22/23 01:34 Est GFR (Non-Af Amer) 129.9 ml/min 01/22/23 01:34 BUN/Creatinine Ratio 13.6 (10-20) 01/22/23 01:34 Glucose 105 mg/dl (70-99(Fasting)) H 01/22/23 01:34 Calcium 8.9 mg/dl (8.6-10.3) 01/22/23 01:34 Magnesium 2.0 mg/dl (1.7-2.4) 01/22/23 01:34 Total Bilirubin 4.1 mg/dl (0.2-1.0) H 01/22/23 01:34 AST 77 U/L (13-39) H 01/22/23 01:34 ALT 30 U/L (7-52) 01/22/23 01:34 Alkaline Phosphatase 307 U/L (34-104) H 01/22/23 01:34 Troponin I High Sens 7.4 pg/ml (0-14) 01/22/23 01:34 Total Protein 6.8 gm/dl (6.0-8.3) 01/22/23 01:34 Albumin 3.8 gm/dl (3.4-5.0) 01/22/23 01:34 Globulin 3.0 gm/dl (2.5-4.0) 01/22/23 01:34 Albumin/Globulin Ratio 1.3 (0.9-2) 01/22/23 01:34 Lipase 20 U/L (11-82) 01/22/23 01:34 Urine Color Yellow 01/22/23 02:40 Urine Appearance Clear (Clear) 01/22/23 02:40 Urine pH 7.0 (4.5-7.5) 01/22/23 02:40 Ur Specific [place] 1.011 (1.000-1.030) 01/22/23 02:40 Urine Protein Negative (Negative) 01/22/23 02:40 Urine Glucose (UA) Negative (Negative) 01/22/23 02:40 Urine Ketones Negative (Negative) 01/22/23 02:40 Urine Blood Trace (Negative) H 01/22/23 02:40 Urine Nitrite Negative (Negative) 01/22/23 02:40 Urine Bilirubin Negative (Negative) 01/22/23 02:40 Urine Urobilinogen Positive (Negative) H 01/22/23 02:40 Ur Leukocyte Esterase Negative (Negative) 01/22/23 02:40 Urine WBC (Auto) 1-5 /hpf (0-5) 01/22/23 02:40 Urine RBC (Auto) 0-4 /hpf (0-4) 01/22/23 02:40 U Hyaline Cast (Auto) 0 /lpf (0-5) 01/22/23 02:40 U Epithel Cells (Auto) 10-20 /lpf (0-5) H 01/22/23 02:40 Urine Bacteria (Auto) Negative (Negative) 01/22/23 02:40 SARS-CoV-2, RNA, NAAT NEGATIVE (NEGATIVE) 01/22/23 00:55 Impressions Abdomen/Pelvis CT 01/22/23 00:31 Exam(s): CT ABDOMEN + PELVIS With Contrast IV Amt: 115 ML OPTIRAY 320 EXAM: CT Abdomen and Pelvis With Intravenous Contrast CLINICAL HISTORY: Reason for exam: abd pain. TECHNIQUE: Axial computed tomography images of the abdomen and pelvis with intravenous contrast. CTDI is 18.98 mGy and DLP is 897.45 mGy-cm. Automated exposure control was utilized for the study. A dose lowering technique was utilized adhering to the principles of ALARA. CONTRAST: Patient received 115 ML OPTIRAY 320 of IV contrast COMPARISON: No relevant prior studies available. FINDINGS: Lung bases: Unremarkable. No mass. No consolidation. ABDOMEN: Liver: Unremarkable. No mass. Gallbladder and bile ducts: Previous cholecystectomy. No biliary duct dilation is seen. Pancreas: Unremarkable. No mass. No ductal dilation. Spleen: Unremarkable. No splenomegaly. Adrenals: Unremarkable. No mass. Kidneys and ureters: Unremarkable. No solid mass. No hydronephrosis. Stomach and bowel: Unremarkable. No obstruction. No mucosal thickening. PELVIS: Appendix: The appendix is normal. Bowel loops are nondilated. No acute inflammatory changes are seen involving the bowel. Bladder: Unremarkable. No mass. Reproductive: Unremarkable as visualized. ABDOMEN and PELVIS: Intraperitoneal space: Unremarkable. No free air. No significant fluid collection. Bones/joints: Slightly sclerotic appearance of the skeletal structures with H shaped vertebral bodies characteristic of sickle cell disease. No acute fracture or destructive bone lesion is seen. No dislocation. Soft tissues: Unremarkable. Vasculature: Unremarkable. No abdominal aortic aneurysm. Lymph nodes: Unremarkable. No enlarged lymph nodes. IMPRESSION: The appendix is normal. Bowel loops are nondilated. No acute inflammatory changes are seen involving the bowel. No acute process is seen in the abdomen or pelvis. Electronically signed by: Brady Guevara MD 01/22/23 03:22 AM Chest CTA 01/22/23 00:31 Exam(s): CTA CHEST IV Amt: 115 ML OPTIRAY 320 EXAM: CT Angiography Chest With Intravenous Contrast CLINICAL HISTORY: Reason for exam: PE, hypoxic sickle cell crisis. TECHNIQUE: Axial computed tomographic angiography images of the chest with intravenous contrast. CTDI is 16.32 mGy and DLP is 457.62 mGy-cm. Automated exposure control was utilized for the study. A dose lowering technique was utilized adhering to the principles of ALARA. MIP reconstructed images were created and reviewed. COMPARISON: No relevant prior studies available. FINDINGS: Pulmonary arteries: The pulmonary arterial tree is well opacified with contrast. No pulmonary emboli are identified. Aorta: The thoracic aorta is nondilated. There is no aneurysm or dissection. Lungs: Prominent vascular and interstitial markings in the mid to lower lungs bilaterally without focal consolidation. Pleural space: Unremarkable. No significant effusion. No pneumothorax. Heart: The heart is mildly enlarged. No pericardial effusion is seen. No evidence of RV dysfunction. Bones/joints: There is a slightly sclerotic appearance of the skeletal structures consistent with history of sickle cell disease. No focal bone lesion or fracture is seen. No dislocation. Soft tissues: Unremarkable. Lymph nodes: Unremarkable. No enlarged lymph nodes. IMPRESSION: 1. The pulmonary arterial tree is well opacified with contrast. No pulmonary emboli are identified. 2. The thoracic aorta is nondilated. There is no aneurysm or dissection. 3. Prominent vascular and interstitial markings in the mid to lower lungs bilaterally without focal consolidation. Electronically signed by: Brady Guevara MD 01/22/23 03:18 AM Diagnostic Findings EKG as per my interpretation : Rate 105, sinus tachycardia, normal axis, diffuse T wave abnormalities Code Status & VTE Plan VTE Prophylaxis Plan VTE Prophylaxis will be ordered: Yes
[2023-01-22] MEDS ORDERED: POLYETHYLENE (MIRALAX) 17 GM PACK PO PRN (05:24)
[2023-01-22 05:54] LABS: Pregnancy Test, Urine Negative (Negative)
--- NOTE | 2023-01-22 07:30 | XRay Report ---
XR chest 1V portable CLINICAL HISTORY: Atypical chest pain. COMPARISON STUDY: None. FINDINGS: Lung volumes are mildly diminished. There is no pneumothorax or pleural effusion. Note is m eddie of mild to moderate cardiomegaly with pulmonary vascular congestion. No airspace opacities are pr esent. IMPRESSION: Mild to moderate cardiomegaly with pulmonary vascular congestion. ACT 112: Negative or not required by law. Electronically signed by: Eduar Mcdonald M.D. 01/22/2023 7:29 AM
[2023-01-22] MEDS ORDERED: DULoxetine HCL 20 MG CAP PO SCH (08:20)
--- NOTE | 2023-01-22 08:47 | XRay Report ---
XR chest 1V portable HISTORY: ffup cxr for poss acute chest syndrome COMPARISON: Chest 01/22/2023. FINDINGS: The cardiac silhouette remains mildly enlarged. There is mild central pulmonary vascular co ngestion without overt edema. No pneumothorax. No pleural effusions. No new focal lung consolidations to suggest a pneumonia. No acute fractures identified. IMPRESSION: 1. Cardiomegaly, unchanged. 2. This mild central pulmonary vascular congestion without overt edema. This is also similar to the p rior studies. ACT 112: Negative or not required by law. Electronically signed by: Sampson Borrero M.D. 01/22/2023 8:44 AM
[2023-01-22] MEDS: NSS + 20MEQ KCL 20 MEQ/1,000 ML BAG IV SCH ×2 (08:53→15:29)
[2023-01-22] MEDS ORDERED: MoRPHine SULFATE CR 15 MG TABCR PO SCH ×2 (09:00→21:00)
[2023-01-22] MEDS ORDERED: CeleBREX 200 MG CAP PO SCH (09:00)
[2023-01-22] MEDS: DOCUSATE SODIUM/SENNA 50/8.6MG TAB PO SCH (09:21)
[2023-01-22] MEDS: ENOXAPARIN INJ 40 MG/0.4 ML SYR SQ SCH (09:21)
[2023-01-22] MEDS: FOLIC ACID 1 MG TAB PO SCH (09:21)
[2023-01-22] MEDS: DULoxetine HCL 20 MG CAP PO SCH (09:21)
[2023-01-22] MEDS: HYDROXYUREA 500 MG CAP PO SCH (09:21)
[2023-01-22] MEDS ORDERED: HYDROmorphone INJ 0.5 MG/0.5 ML SYR IV PRN ×2 (15:37→15:41)
[2023-01-22] MEDS: SODIUM CHLORIDE 0.9% 1000ML 1,000 ML IV SCH (16:02)
--- NOTE | 2023-01-22 16:37 | Oncology Consultation ---
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 She has no clinical symptoms or laboratory evidence to suggest underlying infection. Chest imaging did not show any evidence to suggest acute chest syndrome. -Agree with IV fluid hydration. Would recommend considering discontinuing IV hydration after about 24 hours since patient now has improved oral intake -Recommend transfusing 1 unit of PRBC since she indicates that her hemoglobin is around usually around 9 with exchange blood transfusions. Also recommend obtaining nutritional labs including vitamin B12, folate and iron studies -Adequate pain management. Consider PHONE SPECIALIST pump or hydromorphone 1 to 2 mg every 4 to 6 hours for severe pain. -Incentive spirometer with goal of 10 inspirations every 2 hours to reduce risk of pneumonia and acute chest syndrome. Thank you for this consult. Hematology continue following while patient is in the hospital. Please feel free to call if you have any further questions. History of Present Illness Reason for Consultation: Sickle cell crisis Attending Physician: Sharath Martino MD History of Present Illness Pleasant 37-year-old female with sickle cell hemoglobin SS disease currently on 500 mg hydroxyurea and folic acid daily. Patient usually follows with Dr. Robertson of hematology in [place]. Patient was in [facility] for her on 61th birthday and presented to the ER [facility] with sickle cell crisis. Labs obtained in the ER revealed hemoglobin of 7.3, bilirubin of 4.1. She indicates that about a week ago she was recently admitted to the hospital in [place] for sickle cell crisis. Complains of bilateral upper and lower extremity discomfort. Also experienced chest pain and shortness of breath which has now resolved.She indicates that whenever she is inpatient, she usually receives about 2 to 3 mg of IV Dilaudid every 3-4 hours. Currently rates her pain as 8-9 out of 10 She denies fever, chills, headaches, dizziness, blurry vision or any other issues. States that she has been getting monthly exchange blood transfusions since her second about 2 years ago. Denies recent acute chest syndrome and indicates that she has no history of iron overload. For chronic pain management, she states that she usually takes Dilaudid 4 mg p.o. every 4 hours as needed as well as MS Contin 30 mg a.m., 50 mg p.m. as prescribed by her medicinal plant picker. 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 Allergies Allergy/AdvReac Type Severity Reaction Status Date / Time morphine AdvReac Hives Verified 01/22/23 06:06 (with IV) Home Medications Medication Instructions Recorded Confirmed Type celecoxib 200 mg capsule (Celebrex) 200 mg PO BID PRN Pain 01/22/23 01/22/23 History duloxetine 20 mg capsule,delayed 40 mg PO DAILY 01/22/23 01/22/23 History release folic acid 1 mg tablet 1 mg PO DAILY 01/22/23 01/22/23 History hydromorphone 4 mg tablet 8 mg PO Q4 PRN Pain, Severe 01/22/23 01/22/23 History hydroxyurea 500 mg capsule 500 mg PO DAILY 01/22/23 01/22/23 History morphine 15 mg tablet,extended 15 mg PO DAILY 01/22/23 01/22/23 History release morphine 30 mg tablet,extended 30 mg PO HS 01/22/23 01/22/23 History release ondansetron HCl 8 mg tablet 8 mg PO Q8H PRN Nausea 01/22/23 01/22/23 History Patient History Social History Smoking Status: Never smoker Hx Alcohol Use: No Hx Substance Use: No Preferred Language: Amharic Communication Ability: Effective Percolator Operator Required: No Beliefs That Will Affect Care: None Current Living Situation: Spouse and Family Current Living Situation Comment: home with and baby Other Information That Helps Us Care for You: No Feels Safe at Home: Yes Safety Concerns: Feels Safe At This Time Physical Exam Constitutional: WD/WN, vitals as above Eyes: Icteric sclera ENMT: external ear and nose normal, oropharynx normal Respiratory: normal respiratory effort, lungs clear to auscultation Cardiovascular: RRR, no murmur, no edema Gastrointestinal (Abdomen): normal bowel sounds, soft, nontender, no hepatosplenomegaly Results & Data Vital Signs (Past 12 Hours) Vital Signs Temp Pulse Pulse Resp BP BP Pulse Ox 01/22/23 15:46 94 H 01/22/23 15:02 37.0 C 83 18 117/80 99 01/22/23 14:00 89 16 92 01/22/23 14:00 115/71 01/22/23 13:30 92 H 17 95 01/22/23 13:30 115/75 01/22/23 13:00 116/75 01/22/23 13:00 89 14 95 01/22/23 12:30 112/69 01/22/23 12:30 88 16 94 01/22/23 12:00 91 H 16 98 01/22/23 12:00 116/71 01/22/23 11:30 89 17 98 01/22/23 11:30 113/80 01/22/23 11:00 90 18 98 01/22/23 11:00 111/71 01/22/23 10:30 90 17 99 01/22/23 10:30 113/71 01/22/23 10:00 91 H 22 98 01/22/23 10:00 118/79 01/22/23 09:30 95 H 19 97 01/22/23 09:30 117/79 01/22/23 09:00 91 H 15 97 01/22/23 09:00 110/73 01/22/23 08:30 90 14 98 01/22/23 08:30 116/71 01/22/23 08:00 90 13 98 01/22/23 08:00 105/68 01/22/23 07:30 89 14 98 01/22/23 07:30 112/70 01/22/23 07:00 93 H 15 98 01/22/23 07:00 112/75 01/22/23 06:30 99 H 13 98 01/22/23 06:30 122/78 01/22/23 08:25 87 01/22/23 05:00 103 H 21 113/76 98 01/22/23 04:50 102 H 15 97 01/22/23 04:40 107 H 18 97 O2 Del Method O2 Flow Rate 01/22/23 15:46 01/22/23 15:02 Nasal Cannula 2 01/22/23 14:00 01/22/23 14:00 01/22/23 13:30 01/22/23 13:30 01/22/23 13:00 01/22/23 13:00 01/22/23 12:30 01/22/23 12:30 01/22/23 12:00 01/22/23 12:00 01/22/23 11:30 01/22/23 11:30 01/22/23 11:00 01/22/23 11:00 01/22/23 10:30 01/22/23 10:30 01/22/23 10:00 Nasal Cannula 2 01/22/23 10:00 01/22/23 09:30 Nasal Cannula 2 01/22/23 09:30 01/22/23 09:00 Nasal Cannula 2 01/22/23 09:00 01/22/23 08:30 Nasal Cannula 2 01/22/23 08:30 01/22/23 08:00 Nasal Cannula 2 01/22/23 08:00 01/22/23 07:30 Nasal Cannula 2 01/22/23 07:30 01/22/23 07:00 Nasal Cannula 2 01/22/23 07:00 01/22/23 06:30 Nasal Cannula 2 01/22/23 06:30 01/22/23 08:25 01/22/23 05:00 01/22/23 04:50 01/22/23 04:40
[2023-01-22] MEDS ORDERED: diphenhydrAMINE 50 MG/ML VIAL IV ONE (17:22)
[2023-01-22 17:58] LABS: Reticulocyte % 18.6 % (0.5-2.0); Reticulocytes # 0.5 10^6/uL (0.02-0.10)
--- NOTE | 2023-01-22 18:12 | Hospitalist Progress Note ---
Date of Service January 22, 2023 Assessment & Plan (1) Sickle cell crisis: Plan: Sickle cell crisis Chronic anemia secondary to above Hyperbilirubinemia secondary to above Continue IV fluids, hydroxyurea Elevated LDH, reticulocyte count Ferritin, B12 levels pending Pain control Continue incentive spirometry Wean off of supplemental oxygen as able Transfuse 1 unit PRBCs Monitor CBC Appreciate hematology input Needs follow-up with hematology upon discharge Acute on chronic anemia Hemoglobin 7 following recent confinement in [facility] Monitor CBC No obvious bleeding issues Transfuse as needed Chronic pain on narcotics DVT Px: Lovenox SQ Code Status Full code Admission and Anticipated Discharge Date Admission Date: January 22, 2023 Subjective Patient is seen and examined at bedside States having generalized abdominal pain Also reports constipation Denies any chest pain, dyspnea, dizziness, nausea, vomiting Discussed with Dr. Raymond today Review of Systems Review of Systems: All systems reviewed & are unremarkable except as noted in Subjective Physical Exam Physical Exam: Physical Exam: Vitals signs as noted above General Appearance:Moderately built and nourished, no apparent distress Head: normocephalic, Atraumatic Eyes: normal inspection, EOMI Neck: supple, Trachea midline Respiratory/Chest: Normal breath sounds, CTA, No accessory muscle use Cardiovascular: S1, S2, No murmur Abdomen/GI:Soft, Non tender, Bowel sounds present Extremities/Musculoskeletal:normal inspection, no edema Neurologic/Psych:AAOX3, grossly no focal neurological deficits Skin: normal color, warm Results & Data Results & Data Vital Signs (Past 12 Hours) Vital Signs Temp Pulse Pulse Resp BP BP Pulse Ox 01/22/23 18:02 36.9 C 98 H 18 113/74 99 01/22/23 17:33 37.0 C 100 H 17 115/73 98 01/22/23 17:17 37.3 C 101 H 16 122/77 01/22/23 15:46 94 H 01/22/23 15:02 37.0 C 83 18 117/80 99 01/22/23 14:00 89 16 92 01/22/23 14:00 115/71 01/22/23 13:30 92 H 17 95 01/22/23 13:30 115/75 01/22/23 13:00 116/75 01/22/23 13:00 89 14 95 01/22/23 12:30 112/69 01/22/23 12:30 88 16 94 01/22/23 12:00 91 H 16 98 01/22/23 12:00 116/71 01/22/23 11:30 89 17 98 01/22/23 11:30 113/80 01/22/23 11:00 90 18 98 01/22/23 11:00 111/71 01/22/23 10:30 90 17 99 01/22/23 10:30 113/71 01/22/23 10:00 91 H 22 98 01/22/23 10:00 118/79 01/22/23 09:30 95 H 19 97 01/22/23 09:30 117/79 01/22/23 09:00 91 H 15 97 01/22/23 09:00 110/73 01/22/23 08:30 90 14 98 01/22/23 08:30 116/71 01/22/23 08:00 90 13 98 01/22/23 08:00 105/68 01/22/23 07:30 89 14 98 01/22/23 07:30 112/70 01/22/23 07:00 93 H 15 98 01/22/23 07:00 112/75 01/22/23 06:30 99 H 13 98 01/22/23 06:30 122/78 01/22/23 08:25 87 O2 Del Method O2 Flow Rate 01/22/23 18:02 2 01/22/23 17:33 2 01/22/23 17:17 01/22/23 15:46 01/22/23 15:02 Nasal Cannula 2 01/22/23 14:00 01/22/23 14:00 01/22/23 13:30 01/22/23 13:30 01/22/23 13:00 01/22/23 13:00 01/22/23 12:30 01/22/23 12:30 01/22/23 12:00 01/22/23 12:00 01/22/23 11:30 01/22/23 11:30 01/22/23 11:00 01/22/23 11:00 01/22/23 10:30 01/22/23 10:30 01/22/23 10:00 Nasal Cannula 2 01/22/23 10:00 01/22/23 09:30 Nasal Cannula 2 01/22/23 09:30 01/22/23 09:00 Nasal Cannula 2 01/22/23 09:00 01/22/23 08:30 Nasal Cannula 2 01/22/23 08:30 01/22/23 08:00 Nasal Cannula 2 01/22/23 08:00 01/22/23 07:30 Nasal Cannula 2 01/22/23 07:30 01/22/23 07:00 Nasal Cannula 2 01/22/23 07:00 01/22/23 06:30 Nasal Cannula 2 01/22/23 06:30 01/22/23 08:25 Laboratory Results Short CBC 01/22/23 Range/Units 01:34 WBC 7.53 (4.8-10.8) K/ul Hgb 7.3 L (12.0-16.0) g/dl Hct 20.9 L* (37.0-47.0) % Plt Count 167 (130-400) K/uL BMP 01/22/23 01:34 Sodium 135 L Potassium 3.9 Chloride 105 Carbon Dioxide 27 BUN 6 Creatinine 0.44 L Glucose 105 H Calcium 8.9 Liver Function 01/22/23 Range/Units 01:34 Total Bilirubin 4.1 H (0.2-1.0) mg/dl AST 77 H (13-39) U/L ALT 30 (7-52) U/L Alkaline Phosphatase 307 H (34-104) U/L Albumin 3.8 (3.4-5.0) gm/dl Urine 01/22/23 Range/Units 02:40 Urine Color Yellow Urine Appearance Clear (Clear) Urine pH 7.0 (4.5-7.5) Ur Specific [place] 1.011 (1.000-1.030) Urine Protein Negative (Negative) Urine Glucose (UA) Negative (Negative)
[2023-01-23] MEDS: oxyCODONE HCL IR 5 MG TAB (IMMEDIATE RELEASE) PO PRN ×3 (00:32→16:08)
[2023-01-23] MEDS: HYDROmorphone INJ 1 MG/ML SYRINGE IV PRN ×7 (01:23→21:06)
[2023-01-23] MEDS: SODIUM CHLORIDE 0.9% 1000ML 1,000 ML IV SCH ×3 (03:09→15:48)
[2023-01-23 07:11] LABS: iSTAT Creatinine 0.4 mg/dl (0.6-1.3); iSTAT Hemoglobin 7.8 g/dl (12.0-16.0); iSTAT Ionized Calcium 1.2 mmol/l (1.12-1.32); iSTAT Potassium 3.9 mmol/L (3.3-5.0)
[2023-01-23 07:30] LABS: Basophils # (auto) 0.03 K/uL (0-0.2); Basophils % (auto) 0.7 %; Eosinophils # (auto) 0.32 K/uL (0-0.50); Eosinophils % (auto) 7.1 %; Hematocrit (blood only) 24.6 % (37.0-47.0); Hemoglobin 8.2 g/dl (12.0-16.0); Immature Granulocytes # (auto) 0.02 K/uL (0.01-0.20); Immature Granulocytes % (auto) 0.4 %; Lymphocytes # (auto) 1.67 K/uL (1.2-3.4); Mean Corpuscular Hemoglobin 28.9 pg (25.0-34.0); Mean Corpuscular Hgb Conc 33.3 g/dL (32.0-36.0); Mean Corpuscular Volume 86.6 fL (80.0-100.0); Mean Platelet Volume 11.7 fL (9.4-12.4); Monocytes # (auto) 0.62 K/uL (0.11-0.59); Monocytes % (auto) 13.7 %; Neutrophils # (auto) 1.85 K/uL (1.40-6.50); Neutrophils % (auto) 41.1 %; Platelet Count 185 K/uL (130-400); RDW Coefficient of Variation 22.1 % (11.5-14.5); RDW Standard Deviation 62.2 fL (36.4-46.3); Red Blood Count 2.84 M/uL (4.20-5.40)
[2023-01-23 07:38] LABS: Alanine Aminotransferase 25 U/L (7-52); Albumin Level 3.3 gm/dl (3.4-5.0); Alkaline Phosphatase 245 U/L (34-104); Anion Gap 4 (3-11); Aspartate Aminotransferase 67 U/L (13-39); BUN Creatinine Ratio 14.3 (10-20); Bilirubin,Total 2.9 mg/dl (0.2-1.0); Blood Urea Nitrogen 4 mg/dl (6-23); Calcium 8.4 mg/dl (8.6-10.3); Carbon Dioxide 26 mmol/L (21-32); Chloride 109 mmol/L (98-107); Creatinine Clr Calc Pharmacy 263.3 ml/min; Est GFR (African American) > 150.0 ml/min; Est GFR (Non-African American) > 150.0 ml/min; Glucose 88 mg/dl (70-99(Fasting)); Magnesium 1.9 mg/dl (1.7-2.4); Potassium 4.1 mmol/L (3.5-5.1); Sodium 139 mmol/L (136-145); Total Protein 6.3 gm/dl (6.0-8.3)
[2023-01-23 07:58] LABS: Anisocytosis Present; Nucleated RBC # (auto) 1.41 K/uL (0-0.12); Nucleated RBC % (auto) 31.3 %; Polychromasia 1+; Sickle Cells 2+; Target Cells 1+; White Blood Count 4.51 K/ul (4.8-10.8)
[2023-01-23] MEDS: HYDROXYUREA 500 MG CAP PO SCH (08:25)
[2023-01-23] MEDS: FOLIC ACID 1 MG TAB PO SCH (08:25)
[2023-01-23] MEDS: DOCUSATE SODIUM/SENNA 50/8.6MG TAB PO SCH (08:26)
[2023-01-23] MEDS: DULoxetine HCL 20 MG CAP PO SCH (08:26)
[2023-01-23] MEDS: ENOXAPARIN INJ 40 MG/0.4 ML SYR SQ SCH (09:23)
[2023-01-23] MEDS: oxyCODONE HCL 15 MG TABCR (OxyCONTIN) PO SCH ×2 (12:23→22:25)
--- NOTE | 2023-01-23 16:14 | Hospitalist Progress Note ---
Date of Service January 23, 2023 Assessment & Plan (1) Sickle cell crisis: Plan: Sickle cell crisis Chronic anemia secondary to above Hyperbilirubinemia secondary to above S/P 1 unit PRBCs Continue IV fluids, hydroxyurea Elevated LDH, reticulocyte count Ferritin, B12 levels normal Pain control Continue incentive spirometry Wean off of supplemental oxygen as able Monitor CBC Appreciate hematology input Needs follow-up with hematology upon discharge Pain medications suggested Acute on chronic anemia Hemoglobin 7 following recent confinement in [facility] Monitor CBC No obvious bleeding issues Transfuse PRBCs as needed Hemoglobin 8.2 today Chronic pain on narcotics DVT Px: Lovenox SQ Code Status Full code Admission and Anticipated Discharge Date Admission Date: January 22, 2023 Subjective Patient is seen and examined at bedside Tearful during my encounter States having significant abdominal, bone pain Discussed with patient's at bedside Denies any chest pain, dyspnea, dizziness, nausea, vomiting Review of Systems Review of Systems: All systems reviewed & are unremarkable except as noted in Subjective Physical Exam Physical Exam: Physical Exam: Vitals signs as noted above General Appearance:Moderately built and nourished, no apparent distress Head: normocephalic, Atraumatic Eyes: normal inspection, EOMI Neck: supple, Trachea midline Respiratory/Chest: Normal breath sounds, CTA, No accessory muscle use Cardiovascular: S1, S2, No murmur Abdomen/GI:Soft, Non tender, Bowel sounds present Extremities/Musculoskeletal:normal inspection, no edema Neurologic/Psych:AAOX3, grossly no focal neurological deficits Skin: normal color, warm Results & Data Results & Data Vital Signs (Past 12 Hours) Vital Signs Temp Pulse Pulse Resp BP Pulse Ox O2 Del Method 01/23/23 14:00 85 01/23/23 15:29 36.9 C 77 18 134/86 98 Nasal Cannula 01/23/23 11:23 36.9 C 91 H 18 124/78 93 Room Air 01/23/23 08:00 Room Air 01/23/23 08:00 Room Air 01/23/23 07:26 36.9 C 80 18 136/87 100 Nasal Cannula 01/23/23 07:00 112 H O2 Flow Rate 01/23/23 14:00 01/23/23 15:29 2 01/23/23 11:23 01/23/23 08:00 100 01/23/23 08:00 01/23/23 07:26 2 01/23/23 07:00 Laboratory Results Short CBC 01/23/23 Range/Units 06:35 WBC 4.51 L (4.8-10.8) K/ul Hgb 8.2 L (12.0-16.0) g/dl Hct 24.6 L (37.0-47.0) % Plt Count 185 (130-400) K/uL BMP 01/23/23 06:35 Sodium 139 Potassium 4.1 Chloride 109 H Carbon Dioxide 26 BUN 4 L Creatinine 0.28 L Glucose 88 Calcium 8.4 L Liver Function 01/23/23 Range/Units 06:35 Total Bilirubin 2.9 H (0.2-1.0) mg/dl Direct Bilirubin 1.0 H (0-0.2) mg/dl AST 67 H (13-39) U/L ALT 25 (7-52) U/L Alkaline Phosphatase 245 H (34-104) U/L Albumin 3.3 L (3.4-5.0) gm/dl
[2023-01-24] MEDS: HYDROmorphone INJ 1 MG/ML SYRINGE IV PRN ×8 (00:13→23:05)
[2023-01-24] MEDS: SODIUM CHLORIDE 0.9% 1000ML 1,000 ML IV SCH ×3 (00:18→15:32)
[2023-01-24 08:24] LABS: Alanine Aminotransferase 20 U/L (7-52); Albumin Level 3.4 gm/dl (3.4-5.0); Alkaline Phosphatase 233 U/L (34-104); Anion Gap 4 (3-11); Aspartate Aminotransferase 57 U/L (13-39); BUN Creatinine Ratio 13.8 (10-20); Bilirubin Direct 0.9 mg/dl (0-0.2); Bilirubin,Total 2.9 mg/dl (0.2-1.0); Blood Urea Nitrogen 4 mg/dl (6-23); Calcium 8.6 mg/dl (8.6-10.3); Carbon Dioxide 27 mmol/L (21-32); Chloride 107 mmol/L (98-107); Creatinine Clr Calc Pharmacy 254.2 ml/min; Est GFR (African American) > 150.0 ml/min; Glucose 82 mg/dl (70-99(Fasting)); Potassium 3.6 mmol/L (3.5-5.1); Sodium 138 mmol/L (136-145); Total Protein 6.4 gm/dl (6.0-8.3)
[2023-01-24] MEDS: HYDROXYUREA 500 MG CAP PO SCH (08:31)
[2023-01-24] MEDS: FOLIC ACID 1 MG TAB PO SCH (08:31)
[2023-01-24] MEDS: DULoxetine HCL 20 MG CAP PO SCH (08:32)
[2023-01-24] MEDS: oxyCODONE HCL IR 5 MG TAB (IMMEDIATE RELEASE) PO PRN (08:34)
[2023-01-24] MEDS: oxyCODONE HCL 15 MG TABCR (OxyCONTIN) PO SCH ×3 (08:35→21:00)
[2023-01-24 08:57] LABS: Hemoglobin 8.5 g/dl (12.0-16.0); Mean Corpuscular Hemoglobin 29.5 pg (25.0-34.0); Mean Corpuscular Volume 86.8 fL (80.0-100.0); Mean Platelet Volume 11.6 fL (9.4-12.4); Nucleated RBC # (auto) 1.13 K/uL (0-0.12); Nucleated RBC % (auto) 16.6 %; Platelet Count 181 K/uL (130-400); RDW Coefficient of Variation 21.9 % (11.5-14.5); RDW Standard Deviation 66.2 fL (36.4-46.3); Red Blood Count 2.88 M/uL (4.20-5.40); White Blood Count 6.79 K/ul (4.8-10.8)
[2023-01-24] MEDS: ENOXAPARIN INJ 40 MG/0.4 ML SYR SQ SCH (10:01)
[2023-01-24] MEDS: DOCUSATE SODIUM/SENNA 50/8.6MG TAB PO SCH (10:05)
[2023-01-24] MEDS: CeleBREX 200 MG CAP PO PRN ×2 (12:49→22:17)
--- NOTE | 2023-01-24 15:07 | Hospitalist Progress Note ---
Date of Service January 24, 2023 Assessment & Plan (1) Sickle cell crisis: Plan: Sickle cell crisis Chronic anemia secondary to above Hyperbilirubinemia secondary to above S/P 1 unit PRBCs Continue IV fluids, hydroxyurea Elevated LDH, reticulocyte count Ferritin, B12 levels normal Pain control Continue incentive spirometry Wean off of supplemental oxygen as able Monitor CBC Appreciate hematology input Needs follow-up with hematology upon discharge Pain medications - pt reports improved pain control w/ increased dilaudid Pain management consulted Acute on chronic anemia Hemoglobin 7 following recent confinement in [facility] Monitor CBC No obvious bleeding issues Transfuse pRBCs as needed Hemoglobin 8.5 today Chronic pain : on narcotics DVT Px: Lovenox SQ Code Status : Full code Admission and Anticipated Discharge Date Admission Date: January 22, 2023 Subjective Patient is seen and examined at bedside, follow up for sickle cell disease crisis Continues having abdominal, bone pain - reports pain improved after dilaudid dose increased yesterday Patient's also present at bedside Denies any chest pain, dyspnea, dizziness, nausea, vomiting Says she is supposed to be at school on Sunday Pain management consulted Review of Systems Review of Systems: All systems reviewed & are unremarkable except as noted in Subjective Physical Exam Physical Exam: General Appearance:Moderately built and nourished, no apparent distress Head: normocephalic, Atraumatic Eyes: normal inspection, EOMI Neck: supple Respiratory/Chest: Normal breath sounds, CTA, No accessory muscle use Cardiovascular: S1, S2, No murmur Abdomen/GI:Soft, Bowel sounds present Extremities/Musculoskeletal:normal inspection, no edema Neurologic/Psych:AAOX3, grossly no focal neurological deficits Skin: normal color, warm Results & Data Results & Data Vital Signs (Past 12 Hours) Vital Signs Temp Pulse Pulse Pulse Resp BP Pulse Ox 01/24/23 11:42 37.0 C 100 H 16 110/74 93 01/24/23 08:26 36.5 C 67 18 115/74 99 01/24/23 08:00 01/24/23 07:00 87 01/24/23 03:51 36.8 C 89 18 127/82 99 O2 Del Method O2 Flow Rate 01/24/23 11:42 Nasal Cannula 2 01/24/23 08:26 Nasal Cannula 2 01/24/23 08:00 Nasal Cannula 2 01/24/23 07:00 07/05/23 03:51 Nasal Cannula 2 Laboratory Results 01/24/23 01/24/23 Range/Units 07:26 07:26 WBC 6.79 (4.8-10.8) K/ul RBC 2.88 L (4.20-5.40) M/uL Hgb 8.5 L (12.0-16.0) g/dl Hct 25.0 L (37.0-47.0) % MCV 86.8 (80.0-100.0) fL MCH 29.5 (25.0-34.0) pg MCHC 34.0 (32.0-36.0) g/dL RDW Std Deviation 66.2 H (36.4-46.3) fL RDW Coeff of Karel 21.9 H (11.5-14.5) % Plt Count 181 (130-400) K/uL MPV 11.6 (9.4-12.4) fL Absolute Nucleated RBC 1.13 H (0-0.12) K/uL Nucleated RBC % (auto) 16.6 % Sodium 138 (136-145) mmol/L Potassium 3.6 (3.5-5.1) mmol/L Chloride 107 (98-107) mmol/L Carbon Dioxide 27 (21-32) mmol/L Anion Gap 4 (3-11) BUN 4 L (6-23) mg/dl Creatinine 0.29 L (0.6-1.2) mg/dl Est Cr Clr Drug Dosing 254.2 ml/min Est GFR ( Amer) > 150.0 ml/min Est GFR (Non-Af Amer) 149.0 ml/min BUN/Creatinine Ratio 13.8 (10-20) Glucose 82 (70-99(Fasting)) mg/dl Calcium 8.6 (8.6-10.3) mg/dl Total Bilirubin 2.9 H (0.2-1.0) mg/dl Direct Bilirubin 0.9 H (0-0.2) mg/dl AST 57 H (13-39) U/L ALT 20 (7-52) U/L Alkaline Phosphatase 233 H (34-104) U/L Total Protein 6.4 (6.0-8.3) gm/dl Albumin 3.4 (3.4-5.0) gm/dl Medications Administered Current Inpatient Medications Acetaminophen (Acetaminophen 325 Mg Tab) 650 mg PO Q6H PRN PRN Reason: Fever/Pain Stop: 02/21/23 04:16 Last Admin: 01/23/23 20:40 Dose: 650 mg Celecoxib (Celebrex 200 Mg Cap) 200 mg PO BID PRN PRN Reason: pain not relieved by tylenol Stop: 02/21/23 08:59 Last Admin: 01/24/23 12:49 Dose: 200 mg Duloxetine HCl (Duloxetine Hcl 20 Mg Cap) 40 mg PO [facility] Stop: 02/21/23 08:59 Last Admin: 01/24/23 08:32 Dose: 40 mg Enoxaparin Sodium (Enoxaparin Inj 40 Mg/0.4 Ml Syr) 40 mg SQ [facility] Stop: 02/21/23 08:59 Last Admin: 01/24/23 10:01 Dose: 40 mg Folic Acid (Folic Acid 1 Mg Tab) 1 mg PO [facility] Stop: 02/23/23 08:59 Last Admin: 01/24/23 08:31 Dose: 1 mg Hydromorphone HCl (Hydromorphone Hcl 8 Mg Tab) 8 mg PO Q4H PRN PRN Reason: Pain Stop: 02/05/23 05:04 Last Admin: 01/22/23 15:15 Dose: 8 mg Hydromorphone HCl (Hydromorphone Inj 1 Mg/Ml Syringe) 2 mg IV Q3H PRN PRN Reason: Severe Pain (Scale 7, 8, 9,10) Stop: 02/06/23 00:54 Last Admin: 01/24/23 13:46 Dose: 2 mg Hydroxyurea (Hydroxyurea 500 Mg Cap) 500 mg PO [facility] Stop: 02/21/23 08:59 Last Admin: 01/24/23 08:31 Dose: 500 mg Hydroxyzine HCl (Hydroxyzine Hcl 10 Mg Tab) 10 mg PO QID PRN PRN Reason: Anxiety Stop: 02/21/23 05:20 Promethazine HCl 12.5 mg/ (Sodium Chloride) 50.5 mls @ 202 mls/hr IV Q6H PRN PRN Reason: Nausea And Vomiting Stop: 02/21/23 04:16 Sodium Chloride (Nss 1000ml) 1,000 mls @ 125 mls/hr IV .Q8H [facility] Stop: 02/21/23 15:44 Last Admin: 01/24/23 10:00 Dose: 125 mls/hr Morphine Sulfate (Morphine Sulfate Cr 15 Mg Tabcr) 30 mg PO HS [facility] Stop: 02/05/23 20:59 Morphine Sulfate (Morphine Sulfate Cr 15 Mg Tabcr) 15 mg PO DAILY [facility] Stop: 02/05/23 08:59 Last Admin: 01/22/23 09:21 Dose: 15 mg Oxycodone HCl (Oxycodone Hcl Ir 5 Mg Tab (Immediate Release)) 5 mg PO Q6H PRN PRN Reason: Mild-Mod Pain (Scale 1-6) Stop: 02/05/23 15:36 Last Admin: 01/24/23 08:34 Dose: 5 mg Oxycodone HCl (Oxycodone Hcl 15 Mg Tabcr (Oxycontin)) 15 mg PO Q12 [facility] Stop: 02/06/23 11:59 Last Admin: 01/24/23 11:08 Dose: 15 mg Polyethylene Glycol (Polyethylene (Miralax) 17 Gm Pack) 17 gm PO DAILY PRN PRN Reason: Constipation Stop: 02/21/23 05:23 Senna/Docusate Sodium (Docusate Sodium/Senna 50/8.6mg Tab) 1 tab PO QAM [facility] Stop: 02/21/23 08:59 Last Admin: 01/24/23 10:05 Dose: 1 tab
[2023-01-24] MEDS ORDERED: POTASSIUM CHLORIDE CRTAB 20 MEQ TABCR PO STA (15:10)
--- NOTE | 2023-01-24 22:46 | Electrocardiogram Report ---
Test Reason : Blood Pressure : / mmHG Vent. Rate : 107 BPM Atrial Rate : 107 BPM P-R Int : 178 ms QRS Dur : 082 ms QT Int : 358 ms P-R-T Axes : 052 022 068 degrees QTc Int : 477 ms Sinus tachycardia Possible Left atrial enlargement Nonspecific T wave abnormality Abnormal ECG No previous ECGs available Confirmed by Harry Cordova ([id number]) on 01/24/2023 10:46:11 PM Referred By: REFERRED SELF Confirmed By:Harry Cordova
[2023-01-25] MEDS: HYDROmorphone INJ 1 MG/ML SYRINGE IV PRN ×6 (02:20→21:33)
[2023-01-25] MEDS: SODIUM CHLORIDE 0.9% 1000ML 1,000 ML IV SCH ×3 (04:49→21:56)
--- NOTE | 2023-01-25 08:38 | Pain Management Consultation ---
Date of Consultation January 25, 2023 Assessment & Plan (1) Sickle cell crisis: Plan * Patient's request to increase IV Dilaudid to 3mg x 3 hours was denied. She is requiring intermittent oxygen via nasal cannula due to hypoxia. * I will increase OxyContin from 15mg to 20mg twice daily. * Continue Oxycodone 5mg x 6 hours PRN pain. Consider increasing to 10mg when discontinuing the IV Dilaudid. * Continue IV Dilaudid at 2mg x 3 hours PRN severe pain. She has been made aware that preparation for discharge she will need to rely on oral medications rather than IV. She is understanding. * Nothing to offer interventionally. * Thank you for the consultation. Contact with any questions or concerns. History of Present Illness Reason for Consultation: Uncontrolled pain from sickle cell crisis Attending Physician: Ezio Posey MD History of Present Illness This is a 37 year old female that has been admitted to the [facility] for an acute sickle cell crisis. She is in town visiting family - she lives in [facility]. For pain she was on OxyContin/Oxycodone previously but this regimen was switched to MS Contin/PO Dilaudid in June which was effective. During hospitalization regimen switched back to OxyContin/Oxycodone which is providing little pain relief without side effects. She states that the IV Dilaudid is the only helpful for her pain. For previous hospitalizations she states that she would receive 3mg IV Dilaudid x 3 hours and requests this change. I did deny this request as she is intermittently hypoxic requiring Oxygen via nasal cannula. Patient has previously asked for the IV Dilaudid to be scheduled for every 3 hours. Explained that it is a PRN medication. She denies any constipation, confusion. Allergies Allergy/AdvReac Type Severity Reaction Status Date / Time morphine AdvReac Hives Verified 01/22/23 06:06 (with IV) Home Medications Medication Instructions Recorded Confirmed Type celecoxib 200 mg capsule (Celebrex) 200 mg PO BID PRN Pain 01/22/23 01/22/23 History duloxetine 20 mg capsule,delayed 40 mg PO DAILY 01/22/23 01/22/23 History release folic acid 1 mg tablet 1 mg PO DAILY 01/22/23 01/22/23 History hydromorphone 4 mg tablet 8 mg PO Q4 PRN Pain, Severe 01/22/23 01/22/23 History hydroxyurea 500 mg capsule 500 mg PO DAILY 01/22/23 01/22/23 History morphine 15 mg tablet,extended 15 mg PO DAILY 01/22/23 01/22/23 History release morphine 30 mg tablet,extended 30 mg PO HS 01/22/23 01/22/23 History release ondansetron HCl 8 mg tablet 8 mg PO Q8H PRN Nausea 01/22/23 01/22/23 History Patient History Medical History (Updated 01/25/23 @ 08:56 by Anastacia Ramirez PA-C) Sickle cell crisis Social History Smoking Status: Never smoker Hx Alcohol Use: No Hx Substance Use: No Preferred Language: Hungarian Communication Ability: Effective Exhaust Emissions Inspector Required: No Beliefs That Will Affect Care: None Current Living Situation: Spouse and Family Current Living Situation Comment: home with and baby Other Information That Helps Us Care for You: No Feels Safe at Home: Yes Safety Concerns: Feels Safe At This Time Assistive Devices: Oxygen - Continuous Physical Exam Physical Exam: GENERAL: This is a 37 year old female in no acute distress. Slightly drowsy during our discussion. HEAD/FACE: Normocephalic and atraumatic. EYES: No drainage or conjunctival injection. ENT: Nose without bleeding or discharge. Oral mucosa moist. NECK: Full ROM without apparent pain. No swelling or masses noted. RESPIRATORY: Patient with unlabored breathing. No signs of respiratory distress. CHEST/AXILLA: Chest movement symmetrical. No deformities noted. ABDOMEN/GI: No distension BACK: Moves without difficulty SKIN: [place], warm and dry. No rash noted. MS/EXTREMITY: No swelling, no deformities. Moving extremities appropriately. NEURO: Alert and appears oriented. Speech is fluent. Cranial Nerves are grossly intact. PSYCH: Alert, pleasant, affect is calm
[2023-01-25 08:47] LABS: Hematocrit (blood only) 23.5 % (37.0-47.0); Hemoglobin 8.1 g/dl (12.0-16.0); Mean Corpuscular Hemoglobin 29.1 pg (25.0-34.0); Mean Corpuscular Hgb Conc 34.5 g/dL (32.0-36.0); Mean Corpuscular Volume 84.5 fL (80.0-100.0); Mean Platelet Volume 10.8 fL (9.4-12.4); Platelet Count 175 K/uL (130-400); RDW Coefficient of Variation 20.8 % (11.5-14.5); RDW Standard Deviation 63.4 fL (36.4-46.3); Red Blood Count 2.78 M/uL (4.20-5.40)
[2023-01-25 08:56] LABS: Anion Gap 5 (3-11); BUN Creatinine Ratio 19.2 (10-20); Blood Urea Nitrogen 5 mg/dl (6-23); Calcium 8.5 mg/dl (8.6-10.3); Carbon Dioxide 26 mmol/L (21-32); Chloride 106 mmol/L (98-107); Creatinine Clr Calc Pharmacy 283.5 ml/min; Est GFR (African American) > 150.0 ml/min; Est GFR (Non-African American) > 150.0 ml/min; Glucose 83 mg/dl (70-99(Fasting)); Magnesium 1.9 mg/dl (1.7-2.4); Phosphorus 3.8 mg/dl (2.5-4.9); Potassium 3.8 mmol/L (3.5-5.1); Sodium 137 mmol/L (136-145)
[2023-01-25] MEDS: ENOXAPARIN INJ 40 MG/0.4 ML SYR SQ SCH (09:00)
[2023-01-25] MEDS: DOCUSATE SODIUM/SENNA 50/8.6MG TAB PO SCH (09:04)
[2023-01-25] MEDS: CeleBREX 200 MG CAP PO PRN (09:04)
[2023-01-25] MEDS: FOLIC ACID 1 MG TAB PO SCH (09:05)
[2023-01-25] MEDS: HYDROXYUREA 500 MG CAP PO SCH (09:05)
[2023-01-25] MEDS: DULoxetine HCL 20 MG CAP PO SCH (09:05)
[2023-01-25] MEDS: oxyCODONE HCL 20 MG TABCR (OxyCONTIN) PO SCH ×2 (09:05→20:20)
[2023-01-25 09:17] LABS: Nucleated RBC % (auto) 18.4 %; White Blood Count 4.35 K/ul (4.8-10.8)
--- NOTE | 2023-01-25 16:34 | Progress Note ---
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 Symptoms seem to have abated on current pain regimen. Labs have also improved w ith improvement in hyperbilirubinemia. Oxygen saturation also improved. Appears stable for discharge. 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 Admission and Anticipated Discharge Date Admission Date: January 22, 2023 Subjective States that she is feeling better and is waiting to be discharged. Currently on hydromorphone 2 mg IV every 3 hours Results & Data Vital Signs (Past 12 Hours) Vital Signs Temp Pulse Pulse Resp BP Pulse Ox O2 Del Method 01/25/23 15:36 83 01/25/23 15:33 36.6 C 79 16 143/92 H 100 Nasal Cannula 01/25/23 11:30 36.5 C 112 H 18 106/64 94 Room Air 01/25/23 08:15 Nasal Cannula 01/25/23 07:46 36.7 C 82 18 110/70 93 Room Air 01/25/23 07:40 88 01/25/23 05:50 118/77 O2 Flow Rate 01/25/23 15:36 01/25/23 15:33 2 01/25/23 11:30 01/25/23 08:15 2 01/25/23 07:46 01/25/23 07:40 01/25/23 05:50
--- NOTE | 2023-01-25 18:37 | Hospitalist Progress Note ---
Date of Service January 25, 2023 Assessment & Plan (1) Sickle cell crisis: Plan: Sickle cell crisis Chronic anemia secondary to above Hyperbilirubinemia secondary to above S/P 1 unit PRBCs Continue IV fluids, hydroxyurea Elevated LDH, reticulocyte count Ferritin, B12 levels normal Pain control Continue incentive spirometry Wean off of supplemental oxygen as able Monitor CBC Appreciate hematology input Needs follow-up with hematology upon discharge Pain medications - pt reports improved pain control w/ increased dilaudid Pain management consulted - 20mg oxycontin bid Acute on chronic anemia Hemoglobin 7 following recent confinement in [facility] Monitor CBC No obvious bleeding issues Transfuse pRBCs as needed Hemoglobin continues to be above 8 Chronic pain : on narcotics DVT Px: Lovenox SQ Code Status : Full code Admission and Anticipated Discharge Date Admission Date: January 22, 2023 Subjective Patient is seen and examined at bedside, follow up for sickle cell disease crisis Seen by pain management and also discussed w/ hematology Reports pain improved and wants to be discharged lpn rn so they can travel to [place] Patient's also present at bedside Denies any chest pain, dyspnea, dizziness, nausea, vomiting Review of Systems Review of Systems: All systems reviewed & are unremarkable except as noted in Subjective Physical Exam Physical Exam: General Appearance:Moderately built and nourished, no apparent distress Head: normocephalic, Atraumatic Eyes: normal inspection, EOMI Neck: supple Respiratory/Chest: Normal breath sounds, CTA, No accessory muscle use Cardiovascular: S1, S2, No murmur Abdomen/GI:Soft, Bowel sounds present Extremities/Musculoskeletal:normal inspection, no edema Neurologic/Psych:AAOX3, grossly no focal neurological deficits Skin: normal color, warm Results & Data Results & Data Vital Signs (Past 12 Hours) Vital Signs Temp Pulse Pulse Resp BP Pulse Ox O2 Del Method 01/25/23 15:36 83 01/25/23 15:33 36.6 C 79 16 143/92 H 100 Nasal Cannula 01/25/23 11:30 36.5 C 112 H 18 106/64 94 Room Air 01/25/23 08:15 Nasal Cannula 01/25/23 07:46 36.7 C 82 18 110/70 93 Room Air 01/25/23 07:40 88 O2 Flow Rate 01/25/23 15:36 01/25/23 15:33 2 01/25/23 11:30 01/25/23 08:15 2 01/25/23 07:46 01/25/23 07:40 Laboratory Results 01/25/23 01/25/23 Range/Units 07:57 07:57 WBC 4.35 L (4.8-10.8) K/ul RBC 2.78 L (4.20-5.40) M/uL Hgb 8.1 L (12.0-16.0) g/dl Hct 23.5 L (37.0-47.0) % MCV 84.5 (80.0-100.0) fL MCH 29.1 (25.0-34.0) pg MCHC 34.5 (32.0-36.0) g/dL RDW Std Deviation 63.4 H (36.4-46.3) fL RDW Coeff of Karel 20.8 H (11.5-14.5) % Plt Count 175 (130-400) K/uL MPV 10.8 (9.4-12.4) fL Absolute Nucleated RBC 0.80 H (0-0.12) K/uL Nucleated RBC % (auto) 18.4 % Sodium 137 (136-145) mmol/L Potassium 3.8 (3.5-5.1) mmol/L Chloride 106 (98-107) mmol/L Carbon Dioxide 26 (21-32) mmol/L Anion Gap 5 (3-11) BUN 5 L (6-23) mg/dl Creatinine 0.26 L (0.6-1.2) mg/dl Est Cr Clr Drug Dosing 283.5 ml/min Est GFR ( Amer) > 150.0 ml/min Est GFR (Non-Af Amer) > 150.0 ml/min BUN/Creatinine Ratio 19.2 (10-20) Glucose 83 (70-99(Fasting)) mg/dl Calcium 8.5 L (8.6-10.3) mg/dl Phosphorus 3.8 (2.5-4.9) mg/dl Magnesium 1.9 (1.7-2.4) mg/dl Medications Administered Current Inpatient Medications Acetaminophen (Acetaminophen 325 Mg Tab) 650 mg PO Q6H PRN PRN Reason: Fever/Pain Stop: 02/21/23 04:16 Last Admin: 01/23/23 20:40 Dose: 650 mg Celecoxib (Celebrex 200 Mg Cap) 200 mg PO BID PRN PRN Reason: pain not relieved by tylenol Stop: 02/21/23 08:59 Last Admin: 01/25/23 09:04 Dose: 200 mg Duloxetine HCl (Duloxetine Hcl 20 Mg Cap) 40 mg PO [facility] Stop: 02/21/23 08:59 Last Admin: 01/25/23 09:05 Dose: 40 mg Enoxaparin Sodium (Enoxaparin Inj 40 Mg/0.4 Ml Syr) 40 mg SQ [facility] Stop: 02/21/23 08:59 Last Admin: 01/25/23 09:00 Dose: Not Given Folic Acid (Folic Acid 1 Mg Tab) 1 mg PO [facility] Stop: 02/23/23 08:59 Last Admin: 01/25/23 09:05 Dose: 1 mg Hydromorphone HCl (Hydromorphone Inj 1 Mg/Ml Syringe) 2 mg IV Q3H PRN PRN Reason: Severe Pain (Scale 7, 8, 9,10) Stop: 02/06/23 00:54 Last Admin: 01/25/23 18:28 Dose: 2 mg Hydroxyurea (Hydroxyurea 500 Mg Cap) 500 mg PO [facility] Stop: 02/21/23 08:59 Last Admin: 01/25/23 09:05 Dose: 500 mg Hydroxyzine HCl (Hydroxyzine Hcl 10 Mg Tab) 10 mg PO QID PRN PRN Reason: Anxiety Stop: 02/21/23 05:20 Promethazine HCl 12.5 mg/ (Sodium Chloride) 50.5 mls @ 202 mls/hr IV Q6H PRN PRN Reason: Nausea And Vomiting Stop: 02/21/23 04:16 Sodium Chloride (Nss 1000ml) 1,000 mls @ 80 mls/hr IV .[id number] [facility] Stop: 02/21/23 15:44 Last Admin: 01/25/23 09:50 Dose: 80 mls/hr Oxycodone HCl (Oxycodone Hcl Ir 5 Mg Tab (Immediate Release)) 5 mg PO Q6H PRN PRN Reason: Mild-Mod Pain (Scale 1-6) Stop: 02/05/23 15:36 Last Admin: 01/24/23 08:34 Dose: 5 mg Oxycodone HCl (Oxycodone Hcl 20 Mg Tabcr (Oxycontin)) 20 mg PO Q12 [facility] Stop: 02/08/23 08:59 Last Admin: 01/25/23 09:05 Dose: 20 mg Polyethylene Glycol (Polyethylene (Miralax) 17 Gm Pack) 17 gm PO DAILY PRN PRN Reason: Constipation Stop: 02/21/23 05:23 Senna/Docusate Sodium (Docusate Sodium/Senna 50/8.6mg Tab) 1 tab PO QAM [facility] Stop: 02/21/23 08:59 Last Admin: 01/25/23 09:04 Dose: 1 tab
[2023-01-26] MEDS: HYDROmorphone INJ 1 MG/ML SYRINGE IV PRN ×3 (00:48→09:03)
[2023-01-26] MEDS: oxyCODONE HCL 20 MG TABCR (OxyCONTIN) PO SCH (08:54)
[2023-01-26] MEDS: FOLIC ACID 1 MG TAB PO SCH (08:55)
[2023-01-26] MEDS: DULoxetine HCL 20 MG CAP PO SCH (08:55)
[2023-01-26] MEDS: HYDROXYUREA 500 MG CAP PO SCH (08:56)
[2023-01-26] MEDS: ENOXAPARIN INJ 40 MG/0.4 ML SYR SQ SCH (08:56)
--- NOTE | 2023-01-26 10:00 | Discharge Summary ---
Date of Service January 26, 2023 Admission HPI Per Admitting Provider History obtained from patient and records. Medical history significant for sickle cell disease, chronic pain on narcotics, chronic anemia (baseline hemoglobin 9). Patient is a resident of [place], [place] who drove to [facility] with family 3 days ago to attend her aunts birthday celebration. Patient has been having frequent sickle cell crises (almost monthly) since giving last year. Patient confined last week at a local hospital in [place]. Hemoglobin around 7 on discharge as per patient. Patient was not able to get her monthly exchange transfusion to date. Increased pain in the legs and arms with mild chest/abdominal discomfort for the last few days. Episode reminiscent of sickle cell crisis as per patient different from acute chest syndrome she has not had years. Patient denies headache, cough symptoms. IV cefepime administered at the ER. 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 [employer] Admission Exam Per Admitting Provider GENERAL: Comfortable, no respiratory distress SKIN: Pallor, warm HEENT: Pale palpebral conjunctivae, no ptosis, dry buccal mucosa NECK : Supple, no tenderness CHEST : CTA, no tenderness HEART : Tachycardic, no obvious murmurs ABDOMEN: Some distention, nontender EXTREMITIES : Minimal LE swelling, no LE tenderness, no other conspicuous defo rmities noted NEUROLOGIC : Coherent, no facial asymmetry, no other gross focality Principal Diagnosis Sickle cell crisis Discharge Exam General Appearance:Moderately built and nourished, no apparent distress Head: normocephalic, Atraumatic Eyes: normal inspection, EOMI Neck: supple Respiratory/Chest: Normal breath sounds, CTA, No accessory muscle use Cardiovascular: S1, S2, No murmur Abdomen/GI:Soft, Bowel sounds present Extremities/Musculoskeletal:normal inspection, no edema Neurologic/Psych:AAOX3, grossly no focal neurological deficits Skin: normal color, warm Discharge Data Allergies Allergy/AdvReac Type Severity Reaction Status Date / Time morphine AdvReac Hives Verified 01/22/23 06:06 (with IV) Consultations 01/22/23 03:59 ED Decision to Admit Stat 01/22/23 08:20 Consult Hematology Routine 01/24/23 14:54 Consult Pain Management Routine Ordered Studies 07/03/23 00:31 CT Abd and Pelvis [CT abd pelvis IV con only] Stat FINDINGS: Lung bases: Unremarkable. No mass. No consolidation. ABDOMEN: Liver: Unremarkable. No mass. Gallbladder and bile ducts: Previous cholecystectomy. No biliary duct dilation is seen. Pancreas: Unremarkable. No mass. No ductal dilation. Spleen: Unremarkable. No splenomegaly. Adrenals: Unremarkable. No mass. Kidneys and ureters: Unremarkable. No solid mass. No hydronephrosis. Stomach and bowel: Unremarkable. No obstruction. No mucosal thickening. PELVIS: Appendix: The appendix is normal. Bowel loops are nondilated. No acute inflammatory changes are seen involving the bowel. Bladder: Unremarkable. No mass. Reproductive: Unremarkable as visualized. ABDOMEN and PELVIS: Intraperitoneal space: Unremarkable. No free air. No significant fluid collection. Bones/joints: Slightly sclerotic appearance of the skeletal structures with H shaped vertebral bodies characteristic of sickle cell disease. No acute fracture or destructive bone lesion is seen. No dislocation. Soft tissues: Unremarkable. Vasculature: Unremarkable. No abdominal aortic aneurysm. Lymph nodes: Unremarkable. No enlarged lymph nodes. IMPRESSION: The appendix is normal. Bowel loops are nondilated. No acute inflammatory changes are seen involving the bowel. No acute process is seen in the abdomen or pelvis. CT angio chest PE protocol Stat FINDINGS: Pulmonary arteries: The pulmonary arterial tree is well opacified with contrast. No pulmonary emboli are identified. Aorta: The thoracic aorta is nondilated. There is no aneurysm or dissection. Lungs: Prominent vascular and interstitial markings in the mid to lower lungs bilaterally without focal consolidation. Pleural space: Unremarkable. No significant effusion. No pneumothorax. Heart: The heart is mildly enlarged. No pericardial effusion is seen. No evidence of RV dysfunction. Bones/joints: There is a slightly sclerotic appearance of the skeletal structures consistent with history of sickle cell disease. No focal bone lesion or fracture is seen. No dislocation. Soft tissues: Unremarkable. Lymph nodes: Unremarkable. No enlarged lymph nodes. IMPRESSION: 1. The pulmonary arterial tree is well opacified with contrast. No pulmonary emboli are identified. 2. The thoracic aorta is nondilated. There is no aneurysm or dissection. 3. Prominent vascular and interstitial markings in the mid to lower lungs bilaterally without focal consolidation. Hospital Course (1) Sickle cell crisis: Sickle cell crisis Chronic anemia secondary to above Hyperbilirubinemia secondary to above S/P 1 unit PRBCs Continue IV fluids, hydroxyurea Elevated LDH, reticulocyte count Ferritin, B12 levels normal Pain control Continue incentive spirometry Wean off of supplemental oxygen as able Monitor CBC Appreciate hematology input Needs follow-up with hematology upon discharge Pain medications - pt reports improved pain control w/ increased dilaudid Pain management consulted - 20mg oxycontin bid Pt should follow up w/ pain management as outpt Acute on chronic anemia Hemoglobin 7 following recent confinement in [facility] Monitor CBC No obvious bleeding issues Transfuse pRBCs as needed Hemoglobin continues to be above 8 Chronic pain : on narcotics Total Time Total Time Spent Total Time Spent (In Minutes): 40 Discharge Plan Discharge Items Patient Disposition: Home - Self-Care Reason For Visit: SICKLE CELL CRISIS Discharge Diagnosis: Sickle cell crisis Activity: Per Instructions section Non-emergency contact: Primary Care Provider and Specialist Call non-emergency contact if: you have any medication questions and your symptoms worsen Follow-up/Referrals: Dr. Chava Felder [Other] Diet: Regular Addtl Attending Provider Instructions: Follow-up with your primary care provider and specialist/meter changes records clerk. You should be seen by your primary care doctor within 1 to 2 weeks. Continue your regular pain management regimen. You were seen by pain management here, and 20 mg OxyContin twice daily was recommended. Discuss further with your providers your pain management regimen. Pending Studies at Discharge: No Stand-Alone Forms: [employer], Work/School Release, Smoking Cessation Medications and DC Order Prescriptions: New oxycodone 10 mg tablet,oral only,ext.rel.12 hr 20 mg PO BID Qty: 8 0RF Continued celecoxib [Celebrex] 200 mg capsule 200 mg PO BID PRN (Reason: Pain) morphine 30 mg tablet extended release 30 mg PO HS morphine 15 mg tablet extended release 15 mg PO DAILY hydromorphone 4 mg tablet 8 mg PO Q4 PRN (Reason: Pain, Severe) duloxetine 20 mg capsule,delayed release(DR/EC) 40 mg PO DAILY hydroxyurea 500 mg capsule 500 mg PO DAILY ondansetron HCl 8 mg tablet 8 mg PO Q8H PRN (Reason: Nausea) folic acid 1 mg tablet 1 mg PO DAILY Discharge Orders: Discharge Order (Routine); Ordered 01/26/23 Ordered By: Ezio Posey Admission Data Admit Date/Time: 01/22/23 05:15 Attending Provider: Knab,Ezio F. Admit Provider: Darian Kim Primary Care Provider: PCP,NO Other Providers: Darian Kim ; Jolanta Raymond ; Sharath Martino ; Fay Gonzales
[2023-01-26] MEDS: SODIUM CHLORIDE 0.9% 1000ML 1,000 ML IV SCH (10:11)
[2023-01-26] MEDS: DOCUSATE SODIUM/SENNA 50/8.6MG TAB PO SCH (11:53)
[2023-01-26] MEDS: oxyCODONE HCL IR 5 MG TAB (IMMEDIATE RELEASE) PO PRN (11:53)
== END 2023-01-26 12:35 | disposition home or self-care (01) | DRG 812 ==
LOC: ED 23:25 → EDINP 01-22 05:15 → SUATTDRO 01-22 05:15 → 2N 01-22 08:18